=== PATIENT | male | born 1970 | race African-American/Black ===

== ENCOUNTER 2022-07-08 09:33 | Inpatient (IN) | payer BC, SELFPAY ==
[2022-07-08] VITALS (26 sets, daily range): BP systolic 127–160; BP diastolic 70–98; PULSE 78–97; RESP 16–25; TEMP 36.4–36.7; O2SAT 92–100; BMI 56.9; BMI 60.1
--- NOTE | ~2022-07-08 | NM_ITS ---
EXAMINATION: NM nabila stress w perfusion DATE: 07/09/2022 12:55 INDICATION: Chest pain. TECHNIQUE: Rest images were obtained following intravenous administration of 11.5 mCi Tc99m tetrofosm in (Myoview). The patient was infused intravenously with Lexiscan (regadenoson). Then, 32.9 mCi Tc99m tetrofosmin (Myoview) was administered intravenously, and stress images were obtained. Data was noemí nstructed into short axis and horizontal and vertical long axis SPECT images. Gated SPECT images were also obtained. COMPARISON: Chest CT 07/08/2022 FINDINGS: There is a large, mild, fixed perfusion defect involving apical to basal anterior and anter olateral segments of left ventricle, consistent with infarct. No reversible component is just ischemi a. There is global hypokinesis. Left ventricular ejection fraction measures 35%. IMPRESSION: 1. Large area of mild infarct involving apical to basal anterior and anterolateral segments of left v entricle. Specificity is decreased by breast attenuation artifact. 2. Global hypokinesis with left ventricular ejection fraction measuring 35%. Reviewed, dictated and finalized at location A. IMPRESSION: 1. Large area of mild infarct involving apical to basal anterior and anterolate ral segments of left ventricle. Specificity is decreased by breast attenuation artifact. 2. Global hypokinesis with left ventricular ejection fraction measuring 35%.
--- NOTE | ~2022-07-08 | US_ITS ---
EXAMINATION: US venous doppler [facility] DATE: 07/09/2022 13:48 INDICATION: Chest pain. Elevated d-dimer. TECHNIQUE: Grayscale ultrasound images without and with compression and Doppler ultrasound images of the bilateral lower extremity veins were obtained. COMPARISON: None. FINDINGS: The visualized portions of right common femoral vein, profunda (deep) femoral vein, femoral vein, pop liteal vein, posterior tibial veins, and greater saphenous vein outflow are patent. The visualized portions of left common femoral vein, profunda femoral vein, femoral vein, popliteal v ein, posterior tibial veins and greater saphenous vein outflow are patent. IMPRESSION: 1. No deep venous thrombosis in either lower limb. Reviewed, dictated and finalized at location A.
--- NOTE | ~2022-07-08 | XR_ITS ---
EXAMINATION: XR chest 1V portable DATE: 07/08/2022 10:27 INDICATION: Left-sided chest pain TECHNIQUE: frontal view of the chest was obtained. COMPARISON: None FINDINGS: Evaluation somewhat limited by patient body habitus. Enlarged cardiac silhouette with pulmonary vascu lar congestion. Retrocardiac opacity at the left lower lung zone with obscuration left hemidiaphragm. No pneumothorax or definitive pleural effusion. Mild right superior mediastinal widening with mass e ffect upon the right side of the trachea. IMPRESSION: 1. Opacities in the left lower lung zone which could represent atelectasis or pneumonia. 2. Enlarged cardiac silhouette which could be due to cardiomegaly or pericardial effusion. 3. pulmonary vascular congestion but without ha pulmonary edema. 4. Right superior mediastinal mass exerting mass effect upon the right lateral wall of the trachea wh ich could be due to intrathoracic goiter, mediastinal lymphadenopathy or tortuous great vessels. Cont rast-enhanced chest CT could be obtained for further evaluation. Reviewed, dictated and finalized at location A. IMPRESSION: 1. Opacities in the left lower lung zone which could represent atelectasis or p neumonia. 2. Enlarged cardiac silhouette which could be due to cardiomegaly or pericardia l effusion. 3. pulmonary vascular congestion but without ha pulmonary edema. 4. Right superior mediastinal mass exerting mass effect upon the right lateral wall of the trachea which could be due to intrathoracic goiter, mediastinal lym phadenopathy or tortuous great vessels. Contrast-enhanced chest CT could be obt ained for further evaluation.
--- NOTE | ~2022-07-08 | CT_ITS ---
EXAMINATION: CTA chest PE protocol DATE: 07/08/2022 10:59 INDICATION: Substernal chest pain. TECHNIQUE: Computed tomography (CT) pulmonary angiogram of the chest was performed with 100 mL Omnipa que-350 intravenous contrast. Additional 3D reconstructions utilizing coronal maximum intensity proje ction (MIP) were performed. Automated exposure control and iterative reconstruction technique were em ployed. The dose-length product was 1172.26 mGy-cm. COMPARISON: None FINDINGS: Good contrast opacification of the pulmonary arteries. There is moderate streak artifact from dense c ontrast in the superior vena cava and right atrium. Moderate respiratory motion at the lung bases. To gether this decreases sensitivity in the subsegmental basilar pulmonary arteries. No pulmonary emboli sm identified. Mild linear discoid atelectasis in the left lower lobe. No pneumonia, pulmonary edema or other pulmonary infiltrates. No pleural effusion or pneumothorax. Cardiomegaly with left ventricul ar hypertrophy. Small amount of atherosclerotic coronary artery calcification at the proximal left an terior descending coronary artery. No pericardial effusion. Thoracic aorta is normal in caliber. No p athologically enlarged thoracic lymphadenopathy. Diffuse hepatic steatosis. Severe degenerative disc disease at C6-C7. Mild thoracic spondylosis. Chronic appearing anterior wedging at T11 with 20% anter ior vertebral body height loss. IMPRESSION: 1. No pulmonary embolism or other acute cardiopulmonary disease. Evaluation limited in the subsegment al pulmonary arteries at the bilateral lung bases due primarily to respiratory motion. 2. Cardiomegaly with left ventricular hypertrophy. 3. Diffuse hepatic steatosis. Reviewed, dictated and finalized at location A. IMPRESSION: 1. No pulmonary embolism or other acute cardiopulmonary disease. Evaluation shipley ited in the subsegmental pulmonary arteries at the bilateral lung bases due aiyana moisés to respiratory motion. 2. Cardiomegaly with left ventricular hypertrophy. 3. Diffuse hepatic steatosis.
--- NOTE | 2022-07-08 09:41 | ECG_ITS ---
Measurements Intervals [place] Rate: 96 P: [place]: 0 QRS: 6 QRSD: 111 T: 7 QT: 389 QTc: 493 Interpretive Statements SINUS RHYTHM INTRAVENTRICULAR CONDUCTION DELAY BORDERLINE R WAVE PROGRESSION, ANTERIOR LEADS BORDERLINE ST-T WAVE ABNORMALITY- INF/LAT LEADS BASELINE ARTIFACT- II, III, AVF BORDERLINE ECG NO PREVIOUS ECG AVAILABLE FOR COMPARISON Electronically Signed On 07-08-2022 9:43:35 CDT by Julian Tejada D.O.
--- NOTE | 2022-07-08 09:54 | ED.GENADULT ---
HPI - General Adult General Chief complaint: Chest Pain Stated complaint: chest pain Time Seen by Provider: 07/08/22 09:37 History of Present Illness HPI narrative: 52-year-old male with prior history of heart disease cardiomegaly and hypertension presented emerged department for evaluation of cute onset of left-sided chest pain. Patient states he was getting ready for his physical therapy when he had an intense pain in his left chest wall. Patient states that he did have some worsening shortness of breath and did have some left arm pain. Patient states he felt that he had weakness in the left arm secondary to the pain. Patient states he had no affected numbness states that as the pain improves he feels the weakness is improving. Patient has no prior history of cardiac stents. Patient does have history of cardiomegaly. Related Data Allergies Allergy/AdvReac Type Severity Reaction Status Date / Time No Known Allergies Allergy Verified 07/08/22 10:03 Review of Systems Review of Systems: CONSTITUTIONAL: Denies fever, chills, or sweats. EYES: Denies visual changes, redness, or discharge. ENT: Denies rhinorrhea, congestion, sore throat, or otalgia. CARDIOVASCULAR: See HPI RESPIRATORY: Denies cough or dyspnea. GASTROINTESTINAL: Denies abdominal pain, nausea, vomiting, or diarrhea. GENITOURINARY: Denies dysuria or hematuria. SKIN: Denies rash or itching. MUSCULOSKELETAL: Denies back pain, joint pain, or myalgia. NEUROLOGIC: Denies headache, numbness, or weakness. [facility] Past Medical History Medical History (Updated 07/08/22 @ 18:27 by Param Wood MD) History of myocardial infarction HTN (hypertension), malignant Obesity TIA (transient ischemic attack) Surgical History Surgical History (Updated 07/08/22 @ 15:43 by Alisha Odell NP) H/O eye surgery Family History Family History Unknown Family history unknown Social History Social History (Updated 07/08/22 @ 16:41 by Alisha Odell NP) Social History: [facility]. He is Single and has no children. He is a former smoker. 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 The patient denies any alcohol marijuana or illicit drugs. Code status full code Smoking status: Former smoker Exam Narrative: APPEARANCE: Well appearing, no pain, no distress, well-nourished. HEAD: normocephalic, atraumatic. EYES: PERRLA/EOMI, conjunctivae clear. NOSE: Normal no drainage NECK: Supple. No adenopathy, no masses. RESPIRATORY: Airway patent, respirations nonlabored. Clear to auscultation bilaterally, no rales, rhonchi, wheezing. CARDIOVASCULAR: Regular rate and rhythm without murmurs rubs or gallops. ABDOMINAL: Soft, nontender, nondistended, normal bowel sounds MUSCULOSKELETAL: Moves all extremities. Strength/ROM intact, No edema, No calf tenderness. NEURO: Alert. Cranial nerves II through XII intact. Grossly intact SKIN: Warm, dry. Normal Color Course Course Emergency Course: EKG showed no evidence of acute STEMI. Patient's troponins were elevated but plateaued. Patient's D-dimer was elevated so a CTA PE study was ordered. Patient was agreeable for admission for further cardiac rule out. All questions concerns were addressed. Case was discussed with hospitalist and patient was admitted to the IMU. Patient was stable at time of admission. Patient denied any complaints and felt back to his baseline at time of admission. Vital Signs Vital signs: Vital Signs Pulse Rate 97 07/08/22 09:33 Respiratory Rate 22 H 07/08/22 09:33 Blood Pressure 127/78 07/08/22 09:33 Pulse Oximetry 97 07/08/22 09:33 Oxygen Delivery Room Air 07/08/22 09:33 Temperature 97.6 F 07/08/22 16:37 Pulse Rate 79 07/08/22 18:00 Respiratory Rate 24 H 07/08/22 16:37 Blood Pressure 150/98 H 07/08/22 16:37 Pulse Oximetry 98 07/08/22 16:3
[2022-07-08] MEDS: Please add drug allergy info to patient profile. 1 EACH XX (10:02)
[2022-07-08 10:23] LABS: Basophils Percent Auto 0.5 % (0.2-1.2); Eosinophils Absolute Auto 0.4 K/mm3 (0-0.3); Eosinophils Percent Auto 5.4 % (0-4.4); Hematocrit 40.1 % (42.0-52.0); Hemoglobin 11.9 g/dL (14.0-18.0); Immature Granulocyte Absolute 0.02 K/mm3 (0.00-0.031); Immature Granulocyte Percent A 0.3 % (0-0.5); Lymphocytes Absolute Auto 1.47 K/mm3 (0.9-3.2); Lymphocytes Percent Auto 18.4 % (18.3-44.2); Mean Corpuscular HGB Conc 29.7 g/dl (32-36); Mean Corpuscular Hemoglobin 24.2 pg (26-34); Mean Corpuscular Volume 81.7 fl (80-100); Mean Platelet Volume 10.5 fl (7.4-10.4); Monocytes Absolute Auto 0.4 K/mm3 (0.1-0.6); Monocytes Percent Auto 5.5 % (2.6-8.5); Neutrophils Absolute Auto 5.6 K/mm3 (1.3-6.7); Neutrophils Percent Auto 69.9 % (45.5-73.1); Platelet Count Result 298 k/mm3 (150-375); Red Blood Count 4.91 M/mm3 (4.6-6.20); Red Cell Distribution Width 18.2 % (11.5-14.5)
[2022-07-08 10:32] LABS: Alanine Aminotransferase 18 U/L (6-50); Albumin Level 4.1 g/dL (3.5-5.1); Alkaline Phosphatase 70 U/L (38-126); Anion Gap 10 mmol/L (8-16); Aspartate Amino Transferase 22 U/L (17-59); Bilirubin,Total 0.3 mg/dL (0.2-1.3); Blood Urea Nitrogen 19 mg/dL (9-20); Calcium 8.5 mg/dL (8.4-10.2); Carbon Dioxide 28 mmol/L (22-30); Chloride 100 mmol/L (98-107); Estimated CRCL calculation 142 ml/min; Estimated Glomerular Filt Rate > 60; Glucose 172 mg/dL (65-110); Lipase 60 U/L (23-300); Partial Thromboplastin Time 32.2 SECONDS (22.3-36.8); Potassium 4.1 mmol/L (3.4-5.0); Prothrombin Time 12.3 Seconds (11.1-14.7); Sodium 138 mmol/L (137-145)
[2022-07-08 10:38] LABS: Anisocytosis 1+ (NORMAL); Hypochromasia 1+ (NORMAL); Ovalocytes 1+ (NORMAL); Platelet Estimate Adequate (Adequate)
[2022-07-08 10:39] LABS: D Dimer 0.54 ug/mL (<0.48)
[2022-07-08 10:46] LABS: Troponin I 0.055 ng/mL (0.000-0.034)
[2022-07-08 14:10] LABS: Troponin I 0.047 ng/mL (0.000-0.034)
--- NOTE | 2022-07-08 15:40 | PM.IMHP ---
H&P: HPI History of Present Illness Date/Time: 07/08/22 15:40 Chief Complaint: Chest pain Narrative: This is a 52-year-old male patient who stated he had a previous OK came in today with complaints of left-sided chest pain. The patient stated that he lives at [facility]. The patient developed some left-sided chest pain when he was getting ready for physical therapy and he had an intense pain to his left chest. He also had worsening shortness of breath and some left arm pain. The patient felt that he had weakness in his left arm secondary to the pain. The patient tells me that he has had a previous TIA. The patient was not very forthcoming with his medications and past medical history. His H&H is 11.9 and 40.1. The patient is chronically on oxygen at 2 L per nasal cannula. D-dimers noted to be is 0.54. Troponin 0.055 and 0.057. His pain is now resolved. Chest CTA was read as the following. 1. No pulmonary embolism or other acute cardiopulmonary disease. Evaluation limited in the subsegmental pulmonary arteries at the bilateral lung bases due primarily to respiratory motion. 2. Cardiomegaly with left ventricular hypertrophy. 3. Diffuse hepatic steatosis. Chest x-ray was read as the following 1. Opacities in the left lower lung zone which could represent atelectasis or pneumonia. 2. Enlarged cardiac silhouette which could be due to cardiomegaly or pericardial effusion. 3. pulmonary vascular congestion but without ha pulmonary edema. 4. Right superior mediastinal mass exerting mass effect upon the right lateral wall of the trachea which could be due to intrathoracic goiter, mediastinal lymphadenopathy or tortuous great vessels. Contrast-enhanced chest CT could be obtained for further evaluation. The patient tells me that he takes a daily aspirin. The patient was given aspirin, Dilaudid, and morphine in the emergency room. The patient is being admitted to observation status on the date of service of 07/08/2022 Review of Systems Review of Systems: See HPI All systems reviewed & are unremarkable except as noted in HPI and below Constitutional: Constitutional: Reports as per HPI and Reports no additional constitutional complaints Eyes: Eyes: Reports as per HPI and Reports no additional eye complaints ENT: Reports system reviewed and no additional complaints, except as documented and Reports Normal hearing present Cardiovascular: Cardiovascular: Reports no additional cardiovascular complaints Respiratory: Respiratory: Reports no additional respiratory complaints and Reports no additional respiratory complaints Gastrointestinal: Gastrointestinal: Reports as per HPI and Reports no additional gastrointestinal complaints Musculoskeletal: Musculoskeletal: Reports no additional musculoskeletal complaints Integumentary/Breasts: Skin/Breast: Reports system reviewed and no additional complaints, except as docu and Reports as per HPI Neurologic: Reports system reviewed and no additional complaints, except as documented, Reports as per HPI and Reports Normal hearing present Psychiatric: Psychiatric: Reports no additional psychiatric complaints and Reports as per HPI Endocrine: Endocrine: Reports no additional endocrine complaints Hematologic/Lymphatic: Hematologic/Lymphatic: Reports no additional hematologic/lymphatic complaints Allergic/Immunologic: Allergic/Immunologic: Reports no additional allergic/immunologic complaints [facility] Past Medical History Medical History (Updated 07/08/22 @ 16:49 by Alisha Odell NP) History of myocardial infarction HTN (hypertension), malignant Obesity TIA (transient ischemic attack) Surgical History Surgical History (Updated 07/08/22 @ 15:43 by Alisha Odell NP) H/O eye surgery Family History Family History (Updated 07/08/22 @ 16:39 by Alisha Odell NP) Unknown Family history unknown Social History Social History (Updated 07/08/22 @ 16:41 by Alisha Black
[2022-07-08 16:27] LABS: Troponin I 0.057 ng/mL (0.000-0.034)
--- NOTE | 2022-07-08 16:37 | ADMGEN ---
This patient, Fernando Lambert, was admitted to IMU Room 214-01. Patient/family oriented to hospital policies and general routines including ID bracelet, bed and alarms, visiting hours, pain management, procedures, bathroom and other care routines, personal items, smoking policy, room service/diet, and visiting hours. Information on how to activate the Rapid Response Team has been discussed. Patient/Family are encouraged to report perceived risks to care and to ask questions if they do not understand what they are told or what they should do.
[2022-07-08] MEDS: hydrALAZINE HCL 20 MG/ML VIAL 10 MG IV PUSH (21:38)
[2022-07-08] MEDS: ACETAMINOPHEN 325 MG TABLET PO (23:41)
[2022-07-09] VITALS (15 sets, daily range): BP systolic 125–168; BP diastolic 78–98; PULSE 80–114; RESP 18–24; TEMP 36.2–37.1; O2SAT 94–99; BMI 60.0
--- NOTE | 2022-07-09 | EST_ITS ---
Patient Info Name: Fernando Lambert Age: 52 years : 1970 Gender: Male Ht: 72 in Wt: 445 lbs BSA: 3.32 m2 HR: 84 bpm BP: 129 / 92 mmHg Heart Rhythm: Sinus Rhythm Exam Date: 07/09/2022 11:55 AM Exam Location: [facility] Stress Patient Status: Inpatient Admit Date: 07/08/2022 Staff Ordering Physician: Alisha Odell NP Attending Provider: Joce Flores MD Exercise Technologist: Chuyita Del Castillo, CT Nurse: mahin siddiqui Exam Type: CA stress nabila w NM Study Info Indications R07.9 - Chest pain, unspecified A regadenoson stress test was performed. Summary 1. Please correlate with nuclear medicine images, reported separately. 2. No abnormal ST-T wave changes with lexiscan. Protocol: Lexiscan Stress ECG Details Stage: REST Duration (min): 0 min : 59 sec HR (bpm): 87 SBP (mmHg): 129 DBP (mmHg): 92 Stage: REST Duration (min): 4 min : 21 sec HR (bpm): 86 SBP (mmHg): 129 DBP (mmHg): 92 Stage: STAGE 1 Duration (min): 1 min : 0 sec HR (bpm): 93 SBP (mmHg): 120 DBP (mmHg): 93 Stage: RECOVERY Duration (min): 1 min : 0 sec HR (bpm): 101 SBP (mmHg): 120 DBP (mmHg): 93 Stage: RECOVERY Duration (min): 2 min : 0 sec HR (bpm): 95 SBP (mmHg): 120 DBP (mmHg): 93 Stage: RECOVERY Duration (min): 3 min : 0 sec HR (bpm): 94 SBP (mmHg): 141 DBP (mmHg): 90 Stage: RECOVERY Duration (min): 3 min : 12 sec HR (bpm): 96 SBP (mmHg): 141 DBP (mmHg): 90 Rest HR: 86 bpm Peak HR: 103 bpm Rest Sys BP: 129 mmHg Peak Sys BP: 141 mmHg Max Pred HR: 169 bpm % Max Pred HR: 61 % Target HR: 144 bpm Max RPP: 14,523 bpm*mmHg Target HR Summary: Hemodynamic response to exercise was normal BP Response: Normal blood pressure response Termination Reason: Completed protocol Cardiac Symptoms: None Total Time: 1 min : 0 sec Rest Ellis BP: 92 mmHg Peak Ellis BP: 90 mmHg Total Dose: 0.4 mg Resting ECG Normal sinus rhythm. Resting ST/T wave changes. LVH. Stress ECG No abnormal ST/T wave changes with exercise. Arrhythmias Occasional PVCs. Report Signatures
--- NOTE | 2022-07-09 | ECHO_ITS ---
Patient Info Name: Fernando Lambert Age: 52 years : 1970 Gender: Male Ht: 72 in Wt: 443 lbs BSA: 3.31 m2 HR: 88 bpm BP: 130 / 81 mmHg Heart Rhythm: Sinus Rhythm Exam Date: 07/09/2022 8:32 AM Exam Location: [facility] Pulmonary Patient Status: Outpatient Admit Date: 07/08/2022 Staff Ordering Physician: Alisha Odell NP Banquet Attendant: Yovanny Pruett, ROSALINA, RT Attending Provider: Joce Flores MD Referring Physician: Cass MOONEY; Exam Type: CA echo dop color flow w con Study Info Indications R06.02 - Shortness of breath I51.7 - Cardiomegaly Complete two-dimensional, color flow and Doppler transthoracic echocardiogram is performed with contrast to opacify the left ventricle and to improve the deliniation of the left ventricle endocardial borders. Summary 1. Left ventricular chamber dimension is severely enlarged. 2. Left ventricular systolic function is severely reduced, estimated at 20-25%. 3. There is severely increased left ventricular wall thickness. 4. The left ventricular diastolic function is grade I diastolic dysfunction. 5. Left atrial chamber dimension is mildly enlarged. 6. There is mild mitral valve regurgitation. Left Ventricle Left ventricular chamber dimension is severely enlarged. Left ventricular systolic function is severely reduced, estimated at 20-25%. There is severely increased left ventricular wall thickness. The left ventricular diastolic function is grade I diastolic dysfunction. Right Ventricle Right ventricular chamber dimension is normal. Right ventricular systolic function is normal. Left Atria Left atrial chamber dimension is mildly enlarged. Right Atria Right atrial chamber dimension is normal. Atrial Septum Intact interatrial septum visualized by color flow imaging. Aortic Valve The aortic valve is probable trileaflet. There is mild aortic valve sclerosis. There is no aortic valve stenosis. There is trace aortic valve regurgitation. Pulmonic Valve The pulmonic valve is normal. There is no pulmonic valve stenosis. There is trace pulmonic regurgitation. Mitral Valve The mitral valve has normal leaflets. There is no mitral valve stenosis. There is mild mitral valve regurgitation. Tricuspid Valve The tricuspid valve leaflets are normal. There is no significant tricuspid valve stenosis. There is trace tricuspid valve regurgitation. Pericardium/Pleural The pericardium appears normal. There is trivial pericardial effusion. Inferior Vena Cava Dilated inferior vena cava with >50% collapse upon inspiration consistent with elevated right atrial pressure, 10 mmHg. Aorta The aortic root size at the sinus of Valsalva is normal. The prox ascending aorta size is normal. Left Ventricular Outflow Tract Name Value Normal LVOT 2D LVOT Diameter 2.31 cm LVOT Doppler LVOT Peak Gradient 5 mmHg LVOT Mean Gradient 3 mmHg LVOT VTI 19.69 cm LVOT VTI/AV VTI Ratio 0.74 LVOT Stroke Volume 82.11 ml
[2022-07-09 04:52] LABS: Basophils Percent Auto 0.5 % (0.2-1.2); Eosinophils Absolute Auto 0.5 K/mm3 (0-0.3); Eosinophils Percent Auto 5.6 % (0-4.4); Hematocrit 39.5 % (42.0-52.0); Immature Granulocyte Absolute 0.02 K/mm3 (0.00-0.031); Immature Granulocyte Percent A 0.2 % (0-0.5); Lymphocytes Absolute Auto 1.68 K/mm3 (0.9-3.2); Lymphocytes Percent Auto 20.9 % (18.3-44.2); Mean Corpuscular HGB Conc 30.4 g/dl (32-36); Mean Corpuscular Hemoglobin 24.8 pg (26-34); Mean Corpuscular Volume 81.8 fl (80-100); Mean Platelet Volume 10.5 fl (7.4-10.4); Monocytes Absolute Auto 0.6 K/mm3 (0.1-0.6); Monocytes Percent Auto 7.8 % (2.6-8.5); Neutrophils Absolute Auto 5.2 K/mm3 (1.3-6.7); Platelet Count Result 266 k/mm3 (150-375); Red Blood Count 4.83 M/mm3 (4.6-6.20); Red Cell Distribution Width 17.8 % (11.5-14.5)
[2022-07-09 05:01] LABS: Cholesterol 142 mg/dL (0-200); HDL Direct 23 mg/dL; Lactate Dehydrogenase 183 U/L (120-246); Magnesium 2.2 mg/dL (1.6-2.3); Phosphorus 3.5 mg/dL (2.5-4.5); Triglycerides 185 mg/dL (<150)
[2022-07-09 05:12] LABS: LDL Cholesterol Direct 45 mg/dL
[2022-07-09] MEDS: PERFLUTREN LIPID MICROSPHERES 1.5 ML VIAL DILUTED TO 10 ML TOTAL VOLUME IV PUSH (08:38)
--- NOTE | 2022-07-09 08:39 | IVDEFINITY ---
Prior to administration of IV Definity the patient was educated on the risks and benefits of the imaging enhancing agent including potential adverse side effects. The patient verbalized understanding. Allergies were verified. No exclusion criteria were identified and at least one of the following inclusion criteria were met: 1) physician request, 2) patient technically difficult to image (per the [place] [employer] guidelines of two or more segments not discernable within the apical view), or 3) questionable left ventricular function. ?
[2022-07-09] MEDS: ENOXAPARIN 40 MG/0.4 ML SYRINGE SUB-Q (10:19)
[2022-07-09] MEDS: METOPROLOL SUCCINATE EXT REL 100 MG TABCR PO (10:20)
[2022-07-09] MEDS: FERROUS SULFATE 324 MG TABLET PO ×2 (10:20→16:29)
[2022-07-09] MEDS: hydrALAZINE HCL 50 MG TABLET 100 MG PO ×2 (10:20→16:29)
[2022-07-09] MEDS: MAGNESIUM OXIDE 400 MG TABLET PO ×2 (10:20→16:30)
[2022-07-09] MEDS: FLUTICASONE PROPIONATE 0.05% NA SPR 16 GM BTL (*BKC) 1 SPRAY NASAL ×2 (10:21→16:29)
[2022-07-09] MEDS: FAMOTIDINE 20 MG TABLET 40 MG PO ×2 (10:21→16:28)
[2022-07-09] MEDS: amLODIPine BESYLATE 5 MG TABLET 10 MG PO (10:21)
[2022-07-09] MEDS: ASPIRIN 81 MG CHEWABLE TABLET PO (10:21)
[2022-07-09] MEDS: FOLIC ACID 1 MG TABLET PO (10:21)
--- NOTE | 2022-07-09 11:21 | PM.CNCAR ---
Assessment and Plan Assessment and plan (1) Chest pain: Code(s): R07.9 - Chest pain, unspecified Status: Acute Assessment and Plan: Very atypical. Stress test was already ordered and will await results. Chest pain is pleuritic and likely noncardiac. 2D echocardiogram Doppler also be ordered and reviewed (2) Elevated troponin: Code(s): R77.8 - Other specified abnormalities of plasma proteins Status: Acute Assessment and Plan: Nonspecific troponin elevation of uncertain etiology. Possibly related to elevated blood pressure. Unlikely related to ACS (3) Obesity: Code(s): E66.9 - Obesity, unspecified Status: Acute (4) HTN (hypertension), malignant: Code(s): I10 - Essential (primary) hypertension Status: Acute Assessment and Plan: Continue current meds including amlodipine, aspirin, furosemide, metoprolol, hydralazine. History of Present Illness History of Present Illness Consult date/time: 07/09/22 11:21 Requesting physician: Alisha Odell CH[facility]CKER Consult reason: chest pain Reason For Visit: left sided chest pain,elevated trop Narrative: Date of service 07/09/2022 Reason consultation: Chest pain, elevated troponins Requesting provider: Alisha Odell History: Patient is a 52-year-old male who is currently at [facility] who came into the hospital because of pleuritic chest pain. He started developing chest pain yesterday morning that was worsened by deep breathing. It lasted a couple hours. He was given morphine aspirin and nitroglycerin with improvement of his symptoms. Symptoms lasted for approximately 2 hours. Came to the hospital and had minimal troponin elevation without any significant rise or fall. No pulmonary embolism was noted on CTA. He is currently pain-free. He denies any recent exertional chest pain, unusual shortness of breath, paroxysmal nocturnal dyspnea, orthopnea, edema, palpitations, syncope or presyncope. Review of Systems Review of Systems: All systems reviewed & are unremarkable except as noted in HPI and below Constitutional: Constitutional: Denies body ache(s) Eyes: Eyes: Denies blurry vision ENT: Reports Normal hearing present Cardiovascular: Cardiovascular: Denies diaphoresis Respiratory: Respiratory: Denies chest congestion, Denies cough and Reports dyspnea Gastrointestinal: Gastrointestinal: Denies abdominal pain Genitourinary: Genitourinary: Denies urinary urgency Musculoskeletal: Musculoskeletal: Denies back pain Integumentary/Breasts: Skin/Breast: Denies pruritus and Denies erythema Neurologic: Denies headache(s) Psychiatric: Psychiatric: Denies confusion Endocrine: Endocrine: Denies fatigue Hematologic/Lymphatic: Hematologic/Lymphatic: Denies easy bleeding Allergic/Immunologic: Allergic/Immunologic: Denies GI upset with certain foods and Denies lip swelling PMFSH Past Medical History Medical History (Updated 07/08/22 @ 18:27 by Param Wood MD) History of myocardial infarction HTN (hypertension), malignant Obesity TIA (transient ischemic attack) Surgical History Surgical History (Updated 07/08/22 @ 15:43 by Alisha Odell NP) H/O eye surgery Family History Family History Unknown Family history unknown Social History Social History (Updated 07/08/22 @ 16:41 by Alisha Odell NP) Social History: [facility] He is Single and has no children. He is a former smoker. 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 The patient denies any alcohol marijuana or illicit drugs. Code status full code Smoking status: Former smoker Comments Family medical history: No documented premature coronary disease history in the family Meds Home Medications and Allergies Home Medications Medication Instructions Recorded
--- NOTE | 2022-07-09 15:16 | PM.IMPN ---
Progress Note: A&P Assessment and Plan (1) Elevated troponin: Code(s): R77.8 - Other specified abnormalities of plasma proteins Status: Acute Assessment and Plan: - no prior history of ischemic heart disease. He had seen consumer electronics merchandiser while he gets admitted but fails to follow-up with them as an outpatient basis. I have taken care of him in the past at a different facility and Am unsure if he had a cardiac catheterization done but has had stress test done as far as a remember. -cardiology has been consulted. -echo pending -Lexiscan with large area mild infarct involving apical to basal anterior and anterolateral segment of left ventricle. Specificities decreased by breast attenuation artifact. Global hypokinesis with left ventricular ejection fraction measuring 35% -continue with daily aspirin. - lipid panel on (2) Chest pain: Code(s): R07.9 - Chest pain, unspecified Status: Acute Assessment and Plan: -patient is currently free from chest pain. -he had mildly elevated troponins which all have been level. -cardiology has been consulted. -although his D-dimer was elevated his CTA was negative. - positive D-dimer but venous duplex negative for DVT (3) Obesity: Code(s): E66.9 - Obesity, unspecified Status: Acute Assessment and Plan: -we discussed heart healthy diet. -dietitian has been consulted. -due to excessive calorie intake -discussed low-fat low-salt diet. Avoid fatty fried foods. Eat at least 2 servings of fruits and vegetables daily. Drink plenty water (4) HTN (hypertension), malignant: Code(s): I10 - Essential (primary) hypertension Status: Acute Assessment and Plan: resume home medication (5) TIA (transient ischemic attack): Code(s): G45.9 - Transient cerebral ischemic attack, unspecified Status: Acute Assessment and Plan: -continue with daily aspirin. No residual Subjective Date/time seen: 07/09/22 15:16 Interval history: HPI:This is a 52-year-old male patient who stated he had a previous MO came in today with complaints of left-sided chest pain.? The patient stated that he lives at [facility].? The patient developed some left-sided chest pain when he was getting ready for physical therapy and he had an intense pain to his left chest.? He also had worsening shortness of breath and some left arm pain.? The patient felt that he had weakness in his left arm secondary to the pain.? The patient tells me that he has had a previous TIA.? The patient was not very forthcoming with his medications and past medical history.? His H&H is 11.9 and 40.1.? The patient is chronically on oxygen at 2 L per nasal cannula.? D-dimers noted to be is 0.54.? Troponin 0.055 and 0.057.? His pain is now resolved.? Chest CTA was read as the following. 1. No pulmonary embolism or other acute cardiopulmonary disease. Evaluation limited in the subsegmental pulmonary arteries at the bilateral lung bases due primarily to respiratory motion. 2. Cardiomegaly with left ventricular hypertrophy. 3. Diffuse hepatic steatosis. Chest x-ray was read as the following 1. Opacities in the left lower lung zone which could represent atelectasis or pneumonia. 2. Enlarged cardiac silhouette which could be due to cardiomegaly or pericardial effusion. 3. pulmonary vascular congestion but without ha pulmonary edema. 4. Right superior mediastinal mass exerting mass effect upon the right lateral wall of the trachea which could be due to intrathoracic goiter, mediastinal lymphadenopathy or tortuous great vessels. Contrast-enhanced chest CT could be obtained for further evaluation. The patient tells me that he takes a daily aspirin.? The patient was given aspirin, Dilaudid, and morphine in the emergency room.? The patient is being admitted to observation status on the date of service of 07/08/2022 07/09/2022 no new complaints feels well. precordi
[2022-07-09] MEDS: FUROSEMIDE 40 MG TABLET PO (16:29)
--- NOTE | 2022-07-09 17:24 | PC.NURSE ---
This patient, Fernando Lambert, was transferred to [facility] on 07/09/22 at 1715. Personal belongings sent with patient. Report given to Juliet ODONNELL. Appropriate documentation sent with patient.
[2022-07-10] VITALS (7 sets, daily range): BP systolic 146–150; BP diastolic 78–88; PULSE 75–94; RESP 18–22; TEMP 36.2–36.6; O2SAT 92–98
[2022-07-10] MEDS: hydrALAZINE HCL 50 MG TABLET 100 MG PO ×3 (08:45→18:38)
[2022-07-10] MEDS: MAGNESIUM OXIDE 400 MG TABLET PO (08:45)
[2022-07-10] MEDS: FUROSEMIDE 40 MG TABLET PO ×2 (08:45→18:37)
[2022-07-10] MEDS: METOPROLOL SUCCINATE EXT REL 100 MG TABCR PO (08:45)
[2022-07-10] MEDS: ASPIRIN 81 MG CHEWABLE TABLET PO (08:45)
[2022-07-10] MEDS: FOLIC ACID 1 MG TABLET PO (08:45)
[2022-07-10] MEDS: FAMOTIDINE 20 MG TABLET 40 MG PO ×2 (08:46→18:37)
[2022-07-10] MEDS: FERROUS SULFATE 324 MG TABLET PO ×2 (08:46→18:37)
[2022-07-10] MEDS: amLODIPine BESYLATE 5 MG TABLET 10 MG PO (08:46)
[2022-07-10] MEDS: ENOXAPARIN 40 MG/0.4 ML SYRINGE SUB-Q (08:46)
[2022-07-10] MEDS: FLUTICASONE PROPIONATE 0.05% NA SPR 16 GM BTL (*BKC) 1 SPRAY NASAL ×2 (08:46→18:37)
--- NOTE | 2022-07-10 08:51 | PM.PNCARD ---
Progress Note: A&P Assessment and Plan (1) Cardiomyopathy: Code(s): I42.9 - Cardiomyopathy, unspecified Status: Acute Assessment and Plan: NICM probably secondary to longstanding HTN. EF 35%. Optimize medical therapy with addition of Entresto, spironolactone Continue p.o. furosemide 40mg b.i.d. CHF counseling OK for discharge today from a cardiac standpoint. Outpatient f/u in our office. (2) Chest pain: Code(s): R07.9 - Chest pain, unspecified Status: Acute Assessment and Plan: Atypical chest pain. Stress test yesterday revealed large area of mild infarct, no reversible component to suggest ischemia. Records from outside hospital indicate he had a cath (2019?) that showed mild disease of the RCA (40% mid RCA lesion) that was treated medically. Continue ASA. Will start statin. (3) Elevated troponin: Code(s): R77.8 - Other specified abnormalities of plasma proteins Status: Acute Assessment and Plan: Nonspecific troponin elevation of uncertain etiology. Possibly related to elevated blood pressure. (4) Obesity: Code(s): E66.9 - Obesity, unspecified Status: Acute Assessment and Plan: Weight loss encouraged (5) HTN (hypertension), malignant: Code(s): I10 - Essential (primary) hypertension Status: Acute Assessment and Plan: Continue current meds including amlodipine, aspirin, furosemide, metoprolol, hydralazine. Hopefully will achieve better BP control with addition of HF meds. Subjective Date/time seen: 07/10/22 08:51 Cardiology follow up for cardiomyopathy, CHF Feeling well this morning. No shortness of breath or swelling. Review of Systems Review of Systems: All systems reviewed & are unremarkable except as noted in HPI and below Constitutional: Constitutional: Denies body ache(s), Denies fatigue and Denies headache(s) Eyes: Eyes: Denies blurry vision ENT: Reports Normal hearing present, Denies headache(s) and Denies lip swelling Cardiovascular: Cardiovascular: Denies diaphoresis and Reports dyspnea Respiratory: Respiratory: Denies chest congestion, Denies cough and Reports dyspnea Gastrointestinal: Gastrointestinal: Denies abdominal pain Genitourinary: Genitourinary: Denies urinary urgency Musculoskeletal: Musculoskeletal: Denies back pain Integumentary/Breasts: Skin/Breast: Denies pruritus and Denies erythema Neurologic: Reports Normal hearing present, Denies confusion and Denies headache(s) Psychiatric: Psychiatric: Denies confusion Endocrine: Endocrine: Denies fatigue Hematologic/Lymphatic: Hematologic/Lymphatic: Denies easy bleeding Allergic/Immunologic: Allergic/Immunologic: Denies GI upset with certain foods and Denies lip swelling Exam Narrative: Awake alert oriented appears to be stated age Const: General: comfortable; No in distress or confusion Orientation/consciousness: No confusion HENMT: General nose exam: Normal nares present Mouth: Yes moist mucous membranes Eyes: Sclera: sclerae normal Neck: Neck: supple Carotids: no bruits Chest: Other: No reproducible chest wall pain to palpation Resp: Effort & Inspection: normal respiratory effort Auscultation: clear to auscultation bilaterally Cardio: Rate: regular rate Rhythm: regular rhythm Heart sounds: no murmurs GI: Inspection: non-distended Auscultation: normal bowel sounds Skin: General skin exam: normal color Neuro: General: No confusion Cranial nerves: Yes Normal hearing present Speech: normal speech Sensory Exam: normal sensation Extrem: General: normal to inspection Psych: Mental Status: mental status grossly normal Objective Data Vital Signs Vital Signs: Vital Signs - 24 hr 07/09/22 10:20 07/09/22 10:00 07/09/22 12:00 Temperature Pulse Rate 84 82 93 Respiratory Rate Blood Pressure Pulse Oximetry Oxygen Delivery Oxygen Flow Rate 07/09/22 13:58 07/09/22 1
[2022-07-10 09:07] LABS: Basophils Absolute Auto 0.1 K/mm3 (0.0-0.1); Basophils Percent Auto 0.6 % (0.2-1.2); Eosinophils Absolute Auto 0.4 K/mm3 (0-0.3); Eosinophils Percent Auto 5.1 % (0-4.4); Hemoglobin 11.8 g/dL (14.0-18.0); Immature Granulocyte Absolute 0.02 K/mm3 (0.00-0.031); Immature Granulocyte Percent A 0.2 % (0-0.5); Immature Platelet Fraction Pct 4.6 % (0.9-11.2); Lymphocytes Absolute Auto 1.51 K/mm3 (0.9-3.2); Lymphocytes Percent Auto 18.8 % (18.3-44.2); Mean Corpuscular HGB Conc 30.3 g/dl (32-36); Mean Corpuscular Hemoglobin 24.7 pg (26-34); Mean Corpuscular Volume 81.6 fl (80-100); Mean Platelet Volume 11.3 fl (7.4-10.4); Monocytes Absolute Auto 0.5 K/mm3 (0.1-0.6); Monocytes Percent Auto 5.7 % (2.6-8.5); Neutrophils Absolute Auto 5.6 K/mm3 (1.3-6.7); Neutrophils Percent Auto 69.6 % (45.5-73.1); Platelet Count Result 223 k/mm3 (150-375); Red Blood Count 4.78 M/mm3 (4.6-6.20); Red Cell Distribution Width 17.7 % (11.5-14.5); White Blood Count 8.1 K/mm3 (4.5-10.0)
[2022-07-10 09:23] LABS: Alanine Aminotransferase 20 U/L (6-50); Albumin Level 3.9 g/dL (3.5-5.1); Alkaline Phosphatase 79 U/L (38-126); Anion Gap 11 mmol/L (8-16); Aspartate Amino Transferase 22 U/L (17-59); Bilirubin,Total 0.5 mg/dL (0.2-1.3); Blood Urea Nitrogen 13 mg/dL (9-20); Calcium 8.6 mg/dL (8.4-10.2); Carbon Dioxide 24 mmol/L (22-30); Chloride 101 mmol/L (98-107); Estimated CRCL calculation 137 ml/min; Estimated Glomerular Filt Rate > 60; Glucose 162 mg/dL (65-110); Magnesium 2.3 mg/dL (1.6-2.3); Potassium 3.9 mmol/L (3.4-5.0); Sodium 136 mmol/L (137-145)
[2022-07-10] MEDS: SACUBITRIL/VALSARTAN 24-26 MG TABLET 1 TAB PO (10:23)
--- NOTE | 2022-07-10 11:19 | PM.DS ---
DS: Admitting Diagnosis Discharge Date 07/10/2022 Admitting Diagnosis chest pain DS: Discharge Diagnosis Discharge Diagnosis (1) Elevated troponin: Code(s): R77.8 - Other specified abnormalities of plasma proteins Status: Acute (2) Chest pain: Code(s): R07.9 - Chest pain, unspecified Status: Acute (3) Obesity: Code(s): E66.9 - Obesity, unspecified Status: Acute (4) HTN (hypertension), malignant: Code(s): I10 - Essential (primary) hypertension Status: Acute (5) TIA (transient ischemic attack): Code(s): G45.9 - Transient cerebral ischemic attack, unspecified Status: Acute DS: Summary Hospital Course Reason for hospitalization: This is a 52-year-old male patient who stated he had a previous CT came in today with complaints of left-sided chest pain.? The patient stated that he lives at [facility].? The patient developed some left-sided chest pain when he was getting ready for physical therapy and he had an intense pain to his left chest.? He also had worsening shortness of breath and some left arm pain.? The patient felt that he had weakness in his left arm secondary to the pain.? The patient tells me that he has had a previous TIA.? The patient was not very forthcoming with his medications and past medical history.? His H&H is 11.9 and 40.1.? The patient is chronically on oxygen at 2 L per nasal cannula.? D-dimers noted to be is 0.54.? Troponin 0.055 and 0.057.? His pain is now resolved.? Chest CTA was read as the following. 1. No pulmonary embolism or other acute cardiopulmonary disease. Evaluation limited in the subsegmental pulmonary arteries at the bilateral lung bases due primarily to respiratory motion. 2. Cardiomegaly with left ventricular hypertrophy. 3. Diffuse hepatic steatosis. Chest x-ray was read as the following 1. Opacities in the left lower lung zone which could represent atelectasis or pneumonia. 2. Enlarged cardiac silhouette which could be due to cardiomegaly or pericardial effusion. 3. pulmonary vascular congestion but without ha pulmonary edema. 4. Right superior mediastinal mass exerting mass effect upon the right lateral wall of the trachea which could be due to intrathoracic goiter, mediastinal lymphadenopathy or tortuous great vessels. Contrast-enhanced chest CT could be obtained for further evaluation. The patient tells me that he takes a daily aspirin.? The patient was given aspirin, Dilaudid, and morphine in the emergency room.? The patient is being admitted to observation status on the date of service of 07/08/2022 Hospital Course: # chest pain: -patient is currently free from chest pain. -he had mildly elevated troponins which all have been level. -cardiology has been consulted. -although his D-dimer was elevated his CTA was negative. - positive D-dimer but venous duplex negative for DVT # elevated troponin: - no prior history of ischemic heart disease.? He had seen clinical appeals reviewer while he gets admitted but fails to follow-up with them as an outpatient basis.? Cardiology consulted Stress test done 07/09/2022:-Lexiscan? with large area mild infarct involving apical to basal anterior and anterolateral segment of left ventricle.? Specificities decreased by breast attenuation artifact.? Global hypokinesis with left ventricular ejection fraction measuring 35% -continue with daily aspirin. - lipid panel? on Continue on aspirin added on statin. # cardiomyopathy ejection fraction a 35% this is chronic and nonischemic. Previous ejection fraction between 25-30% Started on Entresto continued metoprolol Continue diuresis with furosemide and added on spironolactone Follow-up with Cardiology on outpatient basis # longstanding hypertension: Likely reason for his cardiomyopathy He has been noncompliant with his low-salt diet. Also does not follow-up with clinical appeals reviewer regularly. Will check CMP with multiple medication
[2022-07-10 14:23] LABS: EDCOVIDSCREEN Negative (Negative)
== END 2022-07-10 18:40 | DRG 198 ==
LOC: ANHED 09:47 → ANHIMU 15:46 → ANH3MEDSUR 07-09 16:39
PROVIDERS: Nurse Practitioner; Admitting Provider Chiropractor; Emergency Provider Emergency Medicine; PCP Internal Medicine; Visit Provider Internal Medicine
DX: R07.89 Other chest pain (principal); I25.2 Old myocardial infarction; I43 Cardiomyopathy in diseases classified elsewhere; Z99.81 Dependence on supplemental oxygen; Z68.44 Body mass index [BMI] 60.0-69.9, adult; R77.8 Other specified abnormalities of plasma proteins; I11.9 Hypertensive heart disease without heart failure; E66.9 Obesity, unspecified; R79.1 Abnormal coagulation profile; Z20.822 Contact with and (suspected) exposure to COVID-19; Z86.73 Personal history of transient ischemic attack (TIA), and cerebral infarction without residual deficits; Z79.82 Long term (current) use of aspirin; Z91.19 Patient's noncompliance with other medical treatment and regimen; Z87.891 Personal history of nicotine dependence
CPT/HCPCS: 36415; 71045; 71275; 78452; 80053; 80061; 83036; 83615; 83690; 83735; 84100; 84443; 84484; 85025; 85055; 85380; 85610; 85730; 87426; 93005; 93017; 93970; 96374; 96375; 99285; A9270; A9502; C8929; C9803; G0378; G0379; J0360; J1650; J2270; J2785; Q9957; Q9967

== ENCOUNTER 2023-07-22 08:53 | Inpatient (IN) | payer BC, SELFPAY ==
[2023-07-22] VITALS (29 sets, daily range): BP systolic 64–151; BP diastolic 31–98; PULSE 67–105; RESP 15–22; TEMP 36.4–36.9; O2SAT 93–100; BMI 56.2
--- NOTE | ~2023-07-22 | CT_ITS ---
EXAMINATION: CT thoracic lumbar wo con DATE: 07/25/2023 08:22 INDICATION: Mass on back left of spine and lower thorax TECHNIQUE: Computed tomography (CT) of the thoracic and lumbar spine was performed without intravenou s contrast. The dose-length product was 2321.12 mGy-cm. Automated exposure control and iterative noemí nstruction technique were employed. COMPARISON: None FINDINGS: There is induration of the left lower back superficial fat at approximately the T11-L3 leve ls.. No discrete walled off fluid collection to suggest abscess. There is lower cervical spondylosis at C6-7. Mild wedge deformities of T10-T12 which appear chronic. There is moderate disc narrowing and endplate degenerative change at L5-S1 with bilateral neural foraminal narrowing at this level. There is mild multilevel facet hypertrophy at L2-3 through L5-S1. There is mild dextroscoliosis. Mild symm etric degenerative changes of the sacroiliac joints. There is atherosclerosis of the aorta without ev idence for aneurysm. Visualized lung parenchyma is unremarkable. IMPRESSION: 1. Soft tissue induration left lower back involving the fat at approximately the T11-L3 levels. Consi derations include posttraumatic hematoma and infection. Correlate clinically. No discrete abscess eunice ntified. 2: Moderate lumbar spondylosis. Reviewed, dictated and finalized at location A. IMPRESSION: 1. Soft tissue induration left lower back involving the fat at approximately th e T11-L3 levels. Considerations include posttraumatic hematoma and infection. C orrelate clinically. No discrete abscess identified. 2: Moderate lumbar spondylosis.
--- NOTE | ~2023-07-22 | XR_ITS ---
EXAMINATION: XR chest 2V DATE: 07/22/2023 12:33 INDICATION: Congestive heart failure with chest pain and shortness of breath TECHNIQUE: frontal and lateral views of the chest were obtained. COMPARISON: Chest CT dated 07/08/2022 FINDINGS: The lungs are clear with no focal airspace opacities, pulmonary edema, pleural effusion or pneumothor ax. Cardiomegaly. Visualized bones and soft tissues are unremarkable. IMPRESSION: 1. Cardiomegaly. No other acute cardiopulmonary disease. Reviewed, dictated and finalized at location A.
--- NOTE | ~2023-07-22 | CT_ITS ---
EXAMINATION: CT brain wo con INDICATION: Altered mental status COMPARISON: None TECHNIQUE: Standard unenhanced head CT. The dose-length product (DLP) was 681.00 mGy-cm. The mA was a djusted according to patient size. Iterative reconstruction technique was employed. FINDINGS: No intracranial hemorrhage, acute infarction, or abnormal mass lesion. The ventricles are n ormal. No abnormal mass effect or midline shift. The coelho-white matter differentiation is normal. The basal cisterns are patent. Changes in the globes are likely from ocular lens surgery. The paranasal sinuses, mastoids and calvarium are normal. IMPRESSION: 1. No acute intracranial abnormality. Reviewed, dictated and finalized at location L.
[2023-07-22 09:09] LABS: Glucose Point of Care > 500 mg/dl (65-105)
--- NOTE | 2023-07-22 09:10 | ECG_ITS ---
Measurements Intervals [place] Rate: 73 P: 69 [place]: 175 QRS: 35 QRSD: 137 T: 41 QT: 421 QTc: 466 Interpretive Statements SINUS RHYTHM INTRAVENTRICULAR CONDUCTION DELAY POOR R WAVE PROGRESSION, ANTERIOR LEADS BORDERLINE T WAVE ABNORMALITY- INFERIOR LEADS BASELINE WANDER- III, AVL, AVF ABNORMAL ECG COMPARED TO ECG 07/08/2022 09:38:23 NO SIGNIFICANT CHANGES Electronically Signed On 07-22-2023 10:36:57 CDT by Julian Tejada D.O.
--- NOTE | 2023-07-22 09:10 | ED.RECABL ---
HPI - Recheck/Abnormal Lab/Rx General Chief Complaint: Recheck/Abnormal Lab/Rx <Constance Nesbitt PA-C - Last Filed: 07/22/23 19:17> Stated Complaint: high bg <Constance Nesbitt PA-C - Last Filed: 07/22/23 19:17> Time Seen by Provider: 07/22/23 08:58 <Constance Nesbitt PA-C - Last Filed: 07/22/23 19:17> Source: patient, EMS and old records reviewed <STEPHAN Jose Last Filed: 07/22/23 19:17> Mode of arrival: EMS <STEPHAN Jose Last Filed: 07/22/23 19:17> Limitations: clinical condition <STEPHAN Jose Last Filed: 07/22/23 19:17> History of Present Illness HPI narrative: Patient is a 53 y/o male, with PMH of CHF, who presents to the ED via EMS with report of AMS and hyperglycemia. Patient is a resident of [facility]. Per EMS report, they were called out to facility today due to patient being altered, obtunded, decreased responsiveness while at breakfast this morning. Upon their arrival, patient was altered, slow to respond, but no acute focal deficits. His blood sugar was noted to be markedly elevated and was brought here for further evaluation. Patient denies history of diabetes. He does admit to feeling slightly confused this morning. He states last thing he remembers was sitting down for breakfast. He denies any other acute complaints. He does report having increased thirst and urination over the last several days with decreased appetite. Denies chest pain, abdominal pain, nausea, vomiting, dizziness, lightheadedness. <STEPHAN Jose Last Filed: 07/22/23 19:17> Related Data Home Medications: Home Medications Medication Instructions Recorded Confirmed acetaminophen 325 mg tablet 325 mg PO PRN PRN Fever Or Pain 07/08/22 07/22/23 albuterol sulfate 90 mcg/actuation 2 puff inhalation Q6H PRN 07/08/22 07/22/23 aerosol inhaler (Proventil HFA) Shortness Of Breath amlodipine 10 mg tablet 10 mg PO DAILY 07/08/22 07/22/23 aspirin 81 mg tablet,delayed 81 mg PO DAILY 07/08/22 07/22/23 release benzocaine 10 % mucosal gel 1 applic mucous membrane BID 07/08/22 07/22/23 (Anbesol (benzocaine)) eucalyptus oil-aloe 1 ea topical BID PRN Congestion 07/08/22 07/22/23 extr-lavender,young oil-petrolatum top ointment (Vicks Babyrub topical ointment) famotidine 40 mg tablet 40 mg PO BID 07/08/22 07/22/23 ferrous sulfate 325 mg (65 mg 325 mg PO BID 07/08/22 07/22/23 iron) tablet fluticasone propionate 50 1 spray intranasal BID 07/08/22 07/22/23 mcg/actuation nasal spray,suspension (Flonase Allergy Relief) folic acid 1 mg tablet 1 mg PO DAILY 07/08/22 07/22/23 furosemide 40 mg tablet 40 mg PO BID 07/08/22 07/22/23 hydralazine 100 mg tablet 100 mg PO TID 07/08/22 07/22/23 loperamide 2 mg capsule 2 mg PO USEASDIRECTD PRN Diarrhea 07/08/22 07/22/23 magnesium hydroxide 400 mg/5 mL 30 ml PO BID PRN Constipation 07/08/22 07/22/23 oral suspension (Milk of Magnesia) magnesium oxide 400 mg PO BID 07/08/22 07/22/23 metoprolol succinate 100 mg 100 mg PO DAILY 07/08/22 07/22/23 tablet,extended release 24 hr nitroglycerin 0.4 mg sublingual 0.4 mg sublingual USEASDIRECTD PRN 07/08/22 07/22/23 tablet Chest Pain <Constance Nesbitt PA-C - Last Filed: 07/22/23 19:17> Allergies/Adverse Reactions: Allergies Allergy/AdvReac Type Severity Reaction Status Date / Time No Known Allergies Allergy Verified 07/22/23 11:08 <Constance Nesbitt PA-C - Last Filed: 07/22/23 19:17> Review of Systems Review of Systems: CONSTITUTIONAL: Reports decreased intake. Denies fever, chills, or sweats. ENT: See HPI. CARDIOVASCULAR: Denies chest pain, palpitations, or edema. RESPIRATORY: Denies cough or dyspnea. GASTROINTESTINAL: Denies abdominal pain, nausea, vomiting, or diarrhea. GENITOURINARY: See HPI. MUSCULOSKELETAL: Denies back pain, joint pain, or myalgia. NEUROLOGIC: See HPI. <Constance Bowden.
[2023-07-22 09:57] LABS: Base Excess ABG 0.2 mEq/l (+/-2.0); Carboxyhemoglobin 0.9 % THb (0-2.0); Device NASAL CANNULA; Fractional Inspired Oxygen 32 %; HCO3 ABG 26.3 mEq/l (22.0-26.0); Methemoglobin ABG 0.3 %THb (0-1.5); Modified Allen's Test Pass; Oxygen Content ABG 16.8 %vol (16.0-22.0); Oxygen Saturation ABG 95.4 % (95.0-100.0); Oxyhemoglobin 94.5 % THb (90.0-100.0); PCO2 ABG 48.8 mmHg (35.0-45.0); PO2 ABG 81.1 mmHg (80.0-100.0); PO2 FiO2 Ratio Arterial Blood 2.53 %; Reduced Hemoglobin 4.3 %THb (0-5.0); Site Drawn LEFT RADIAL; Total Hemoglobin 12.6 g/dL (12.0-18.0)
[2023-07-22 09:59] LABS: Basophils Absolute Auto 0.1 K/mm3 (0.0-0.1); Basophils Percent Auto 0.9 % (0.2-1.2); Eosinophils Absolute Auto 0.1 K/mm3 (0-0.3); Eosinophils Percent Auto 1.4 % (0-4.4); Hematocrit 36.9 % (42.0-52.0); Hemoglobin 11.4 g/dL (14.0-18.0); Immature Granulocyte Absolute 0.03 K/mm3 (0.00-0.031); Immature Granulocyte Percent A 0.3 % (0-0.5); Lymphocytes Absolute Auto 1.27 K/mm3 (0.9-3.2); Lymphocytes Percent Auto 14.1 % (18.3-44.2); Mean Corpuscular HGB Conc 30.9 g/dl (32-36); Mean Corpuscular Hemoglobin 26.1 pg (26-34); Mean Corpuscular Volume 84.6 fl (80-100); Mean Platelet Volume 11.2 fl (7.4-10.4); Monocytes Absolute Auto 0.5 K/mm3 (0.1-0.6); Monocytes Percent Auto 5.1 % (2.6-8.5); Neutrophils Absolute Auto 7.1 K/mm3 (1.3-6.7); Neutrophils Percent Auto 78.2 % (45.5-73.1); Platelet Count Result 312 k/mm3 (150-375); Red Blood Count 4.36 M/mm3 (4.6-6.20); Red Cell Distribution Width 14.2 % (11.5-14.5)
[2023-07-22 10:07] LABS: Appearance Urine Clear (Clear); Bilirubin Urine Negative (Negative); Blood Urine Negative (Negative); Color Urine Yellow (Yellow); Glucose Urine UA 3+ mg/dL (Negative); Ketones Urine Negative (Negative); Leukocyte Esterase Ur Negative LEU/UL (Negative); Nitrate Urine Negative (Negative); Protein Urine Negative (Negative); Specific Grav Ur 1.027 (1.001-1.035); Urobilinogen Urine 0.2 mg/dL (<2.0); pH Urine 6.5 (5.0-9.0)
[2023-07-22 10:08] LABS: Hemoglobin A1C 13.5 % (<5.7)
[2023-07-22 10:19] LABS: Beta-Hydroxybutyrate/Acetoacetate 0.44 mmol/L (0.02-0.27); NT Pro B Type Natriuretic Pept 283 pg/mL (19.9-100)
[2023-07-22 10:21] LABS: Bilirubin,Total 0.7 mg/dL (0.2-1.3); Magnesium 2.7 mg/dL (1.6-2.3); Phosphorus 4.1 mg/dL (2.5-4.5); Potassium 7.2 mmol/L (3.4-5.0); Sodium 125 mmol/L (137-145)
[2023-07-22 10:22] LABS: Alanine Aminotransferase 31 U/L (6-50); Albumin Level 4.5 g/dL (3.5-5.1); Alkaline Phosphatase 107 U/L (38-126); Anion Gap 10 mmol/L (8-16); Aspartate Amino Transferase 27 U/L (17-59); Blood Urea Nitrogen 41 mg/dL (9-20); Calcium 8.7 mg/dL (8.4-10.2); Carbon Dioxide 28 mmol/L (22-30); Chloride 87 mmol/L (98-107); Estimated CRCL calculation 81 ml/min; Estimated Glomerular Filt Rate 48
[2023-07-22 10:30] LABS: Add Urine Microscopic? NO
[2023-07-22] MEDS: SODIUM CHLORIDE 0.9% IV 1,000 ML 999 ML IV CONT ×3 (10:38→13:16)
[2023-07-22] MEDS: CALCIUM GLUCONATE 1,000 MG/10 ML VIAL 1000 MG IV PUSH (10:39)
[2023-07-22] MEDS: SODIUM ZIRCONIUM CYCLOSILICATE 10 GM POWD.PACK PO (10:41)
[2023-07-22] MEDS: INSULIN HUMAN REGULAR (*BKC) 100 UNITS/ML 10 UNITS IV PUSH (10:44)
[2023-07-22 10:48] LABS: Glucose 739 mg/dL (65-110)
[2023-07-22 11:45] LABS: Glucose Point of Care > 500 mg/dl (65-105)
[2023-07-22 12:42] LABS: Glucose Point of Care > 500 mg/dl (65-105)
[2023-07-22] MEDS: INSULIN HUMAN REGULAR (*BKC) 100 UNITS in SODIUM CHLORIDE 0.9% IV 99 ML 20 UNITS IV CONT (13:11)
--- NOTE | 2023-07-22 13:40 | ADMGEN ---
This patient, Fernando Lambert, was admitted to Intensive Care Unit-3. Patient/family oriented to hospital policies and general routines including ID bracelet, bed and alarms, visiting hours, pain management, procedures, bathroom and other care routines, personal items, smoking policy, room service/diet, and visiting hours. Information on how to activate the Rapid Response Team has been discussed. Patient/Family are encouraged to report perceived risks to care and to ask questions if they do not understand what they are told or what they should do.
[2023-07-22 13:57] LABS: Glucose Point of Care > 500 mg/dl (65-105)
--- NOTE | 2023-07-22 13:58 | WPDCNINT ---
Assessment and Plan Assessment and plan (1) Hyperosmolar hyperglycemic state (HHS): Code(s): E11.00 - Type 2 diabetes mellitus with hyperosmolarity without nonketotic hyperglycemic-hyperosmolar coma (NKHHC) Status: Acute Assessment and Plan: New onset diabetes with HHS 07/22: Patient presented the ED with altered mental status hyperglycemia with blood sugars of 739 in the ER. He also complained of polyuria and polydipsia -patient was given 2 L IV fluid bolus, started on insulin infusion and transferred to the ICU for further management -will continue to monitor BMPs -NPO except ice chips for now -hemoglobin A1c is 13.5 this admission -assistant health educator and dietitian have been consulted -once blood sugars have been within normal limits will transition to long-acting insulin and sliding scale insulin and then allow the patient to have a diabetic diet (2) Acute kidney injury: Code(s): N17.9 - Acute kidney failure, unspecified Status: Acute Assessment and Plan: Acute kidney injury likely related to HHS polyuria -adequately fluid-resuscitated -will monitor renal function, electrolytes and urine output (3) Hyperkalemia: Code(s): E87.5 - Hyperkalemia Status: Acute Assessment and Plan: could be be related to hyperglycemia, hemoconcentration, patient also takes spironolactone at home -patient has been treated with insulin, Lokelma, calcium and IV fluids -repeat labs are pending (4) Cardiomyopathy: Code(s): I42.9 - Cardiomyopathy, unspecified Status: Acute Assessment and Plan: Patient has a history of nonischemic cardiomyopathy likely related to longstanding hypertension mention in the cardiology progress notes from July 2022 -patient on aspirin, atorvastatin, Lasix, metoprolol, [facility], -will restart Entresto, metoprolol hydralazine, amlodipine, aspirin and atorvastatin -will hold Lasix and spironolactone since is likely hypovolemic secondary to polyuria, leading to HHS + hyperkalemia -07/09/2022 Echocardiogram Summary ? 1. Left ventricular chamber dimension is severely enlarged. ? 2. Left ventricular systolic function is severely reduced, estimated at 20-25%. ? 3. There is severely increased left ventricular wall thickness. ? 4. The left ventricular diastolic function is grade I diastolic dysfunction. ? 5. Left atrial chamber dimension is mildly enlarged. ? 6. There is mild mitral valve regurgitation (5) HTN (hypertension), malignant: Code(s): I10 - Essential (primary) hypertension Status: Acute Assessment and Plan: Will restart home amlodipine, hydralazine and metoprolol Plan DVT prophylaxis: Lovenox Stress ulcer prophylaxis: Not indicated Nutrition: NPO for now except ice chips Code Status: Full code Critical Care Time Spent: 46 minutes Discussed with patient updated with his condition and plan of care. Due to a high probability of clinically significant, life threatening deterioration, the patient required my highest level of preparedness to intervene emergently and I personally spent this critical care time directly and personally managing the patient. This critical care time included obtaining a history; examining the patient; pulse oximetry; ordering and review of studies; arranging urgent treatment with development of a management plan; evaluation of patient's response to treatment; frequent reassessment; and discussions with other providers. It was exclusive of separately billable procedures and treating other patients and teaching time. Please see Assessment and Plan section and the rest of the note for further information on patient assessment and treatment This dictation may have been done utilizing a voice recognition system. Attempts have been made to correct errors. However, there may be uncorrected grammatical, spelling, and recognitions errors present. [facility] Consult Note Con
[2023-07-22 15:12] LABS: Glucose Point of Care 481 mg/dl (65-105)
[2023-07-22 15:23] LABS: Anion Gap 9 mmol/L (8-16); Blood Urea Nitrogen 35 mg/dL (9-20); Calcium 8.7 mg/dL (8.4-10.2); Carbon Dioxide 28 mmol/L (22-30); Chloride 96 mmol/L (98-107); Estimated CRCL calculation 86 ml/min; Estimated Glomerular Filt Rate 52; Glucose 451 mg/dL (65-110); Magnesium 2.8 mg/dL (1.6-2.3); Phosphorus 3.8 mg/dL (2.5-4.5); Potassium 4.8 mmol/L (3.4-5.0); Sodium 133 mmol/L (137-145)
[2023-07-22 15:25] LABS: Anion Gap 8 mmol/L (8-16); Blood Urea Nitrogen 35 mg/dL (9-20); Calcium 8.7 mg/dL (8.4-10.2); Carbon Dioxide 29 mmol/L (22-30); Chloride 96 mmol/L (98-107); Estimated CRCL calculation 82 ml/min; Estimated Glomerular Filt Rate 48; Glucose 450 mg/dL (65-110); Potassium 4.8 mmol/L (3.4-5.0); Sodium 133 mmol/L (137-145)
[2023-07-22 16:07] LABS: Glucose Point of Care 321 mg/dl (65-105)
[2023-07-22] MEDS: SODIUM CHLORIDE 0.9% IV 1,000 ML 75 ML IV CONT (16:08)
[2023-07-22 16:14] LABS: Appearance Urine Clear (Clear); Bilirubin Urine Negative (Negative); Blood Urine Negative (Negative); Color Urine Yellow (Yellow); Glucose Urine UA 3+ mg/dL (Negative); Ketones Urine Negative (Negative); Leukocyte Esterase Ur Negative LEU/UL (NEGATIVE); Nitrate Urine Negative (Negative); Protein Urine Negative (Negative); Specific Grav Ur 1.026 (1.001-1.035); Urobilinogen Urine 0.2 mg/dL (<2.0); pH Urine 5.5 (5.0-9.0)
[2023-07-22 16:21] LABS: Add Urine Microscopic? NO
[2023-07-22 17:03] LABS: Glucose Point of Care 220 mg/dl (65-105)
[2023-07-22] MEDS: INSULIN HUMAN REGULAR (*BKC) 100 UNITS in SODIUM CHLORIDE 0.9% IV 99 ML 29.5 UNITS IV CONT (17:12)
[2023-07-22 17:59] LABS: Glucose Point of Care 117 mg/dl (65-105)
[2023-07-22] MEDS: INSULIN GLARGINE (*BKC) 100 UNITS/ML 40 UNITS SUB-Q (18:43)
[2023-07-22] MEDS: hydrALAZINE HCL 50 MG TABLET 100 MG PO (18:43)
[2023-07-22 18:58] LABS: Anion Gap 10 mmol/L (8-16); Blood Urea Nitrogen 34 mg/dL (9-20); Carbon Dioxide 27 mmol/L (22-30); Chloride 101 mmol/L (98-107); Estimated CRCL calculation 97 ml/min; Estimated Glomerular Filt Rate 60; Glucose 87 mg/dL (65-110); Potassium 4.7 mmol/L (3.4-5.0); Sodium 138 mmol/L (137-145)
[2023-07-22 19:04] LABS: Glucose Point of Care 118 mg/dl (65-105)
[2023-07-22 19:41] LABS: Glucose Point of Care 202 mg/dl (65-105)
[2023-07-22] MEDS: ATORVASTATIN 40 MG TABLET PO (20:48)
[2023-07-22] MEDS: SACUBITRIL/VALSARTAN 24-26 MG TABLET 1 TAB PO (20:48)
[2023-07-22 20:54] LABS: Glucose Point of Care 295 mg/dl (65-105)
[2023-07-22] MEDS: ALBUTEROL SULFATE NEB 2.5 MG/3 ML INH INHALATION (20:54)
[2023-07-22] MEDS: IPRATROPIUM BR 0.02% INH SOLN 0.5 MG/2.5 ML VIAL INHALATION (20:55)
[2023-07-22] MEDS: INSULIN ASPART (*BKC) 100 UNITS/ML SUB-Q (21:05)
--- NOTE | 2023-07-22 22:13 | PM.IMHP ---
H&P: HPI History of Present Illness Date/Time: 07/22/23 22:13 Chief Complaint: AMS Narrative: 53 y/o M presented here with AMS and hyperglycemia this morning with PMH of cardiomyopathy, HTN, OK, TIA, and obesity w/related mobility reduction. Patient is currently residing at [facility]. Per patient he remembers sitting down to breakfast, then waking in the emergency department. EMS reported that the facility called due to patient becoming altered, obtunded, and slow to respond. Blood glucose was assessed and reading HIGH. he reports in the last few days that he has been experiencing increased thirst, urinary frequency, decreased appetite. Reports filling 3 urinals per night. denies chest pain, dizziness, lightheadedness, nausea, diarrhea, or vomiting. no previous history of diabetes. Review of Systems Review of Systems: All systems reviewed & are unremarkable except as noted in HPI and below PMFSH Past Medical History Medical History (Updated 07/22/23 @ 22:20 by Monique Varner APRN) Cardiomyopathy History of myocardial infarction HTN (hypertension), malignant Obesity TIA (transient ischemic attack) Surgical History Surgical History H/O eye surgery Family History Family History (Updated 07/22/23 @ 22:20 by Monique Varner APRN) Unknown Family history unknown denied FH of genetic disorders, early heart disease, or cancers Social History Social History (Updated 07/22/23 @ 22:21 by Monique Varner APRN) Social History: Patient resides at [facility]. He is Single and has no children. He is a former smoker. He states that he does not have a durable power real estate attorney for healthcare. The patient denies any alcohol marijuana or illicit drugs. Surrogate decision maker William Lambert, father. Code status full code Smoking status: Former smoker Spiritual care concerns: No Meds Home Medications and Allergies Home Medications Medication Instructions Recorded Confirmed Type acetaminophen 325 mg tablet 325 mg PO PRN PRN Fever Or Pain 07/08/22 07/22/23 History albuterol sulfate 90 mcg/actuation 2 puff inhalation Q6H PRN 07/08/22 07/22/23 History aerosol inhaler (Proventil HFA) Shortness Of Breath amlodipine 10 mg tablet 10 mg PO DAILY 07/08/22 07/22/23 History aspirin 81 mg tablet,delayed 81 mg PO DAILY 07/08/22 07/22/23 History release benzocaine 10 % mucosal gel 1 applic mucous membrane BID 07/08/22 07/22/23 History (Anbesol (benzocaine)) eucalyptus oil-aloe 1 ea topical BID PRN Congestion 07/08/22 07/22/23 History extr-lavender,young oil-petrolatum top ointment (Vicks Babyrub topical ointment) famotidine 40 mg tablet 40 mg PO BID 07/08/22 07/22/23 History ferrous sulfate 325 mg (65 mg 325 mg PO BID 07/08/22 07/22/23 History iron) tablet fluticasone propionate 50 1 spray intranasal BID 07/08/22 07/22/23 History mcg/actuation nasal spray,suspension (Flonase Allergy Relief) folic acid 1 mg tablet 1 mg PO DAILY 07/08/22 07/22/23 History furosemide 40 mg tablet 40 mg PO BID 07/08/22 07/22/23 History hydralazine 100 mg tablet 100 mg PO TID 07/08/22 07/22/23 History loperamide 2 mg capsule 2 mg PO USEASDIRECTD PRN Diarrhea 07/08/22 07/22/23 History magnesium hydroxide 400 mg/5 mL 30 ml PO BID PRN Constipation 07/08/22 07/22/23 History oral suspension (Milk of Magnesia) magnesium oxide 400 mg PO BID 07/08/22 07/22/23 History metoprolol succinate 100 mg 100 mg PO DAILY 07/08/22 07/22/23 History tablet,extended release 24 hr nitroglycerin 0.4 mg sublingual 0.4 mg sublingual USEASDIRECTD PRN 07/08/22 07/22/23 History tablet Chest Pain atorvastatin 40 mg tablet 40 mg PO HS #30 tabs 07/10/22 07/22/23 Rx sacubitril 24 mg-valsartan 26 mg 1 tablet PO Q12HR #60 tabs 07/10/22 07/22/23 Rx tablet (Entresto) spironolactone 25 mg tablet 25 mg PO QAM #30 tabs
[2023-07-23] VITALS (28 sets, daily range): BP systolic 98–154; BP diastolic 59–95; PULSE 74–115; RESP 11–20; TEMP 36.6–36.8; O2SAT 92–100; BMI 56.2
[2023-07-23] MEDS: ALBUTEROL SULFATE NEB 2.5 MG/3 ML INH INHALATION ×4 (02:40→20:36)
[2023-07-23] MEDS: IPRATROPIUM BR 0.02% INH SOLN 0.5 MG/2.5 ML VIAL INHALATION ×4 (02:40→20:36)
[2023-07-23 05:13] LABS: Basophils Absolute Auto 0.1 K/mm3 (0.0-0.1); Basophils Percent Auto 0.8 % (0.2-1.2); Eosinophils Absolute Auto 0.3 K/mm3 (0-0.3); Eosinophils Percent Auto 3.1 % (0-4.4); Hematocrit 33.4 % (42.0-52.0); Hemoglobin 10.3 g/dL (14.0-18.0); Immature Granulocyte Absolute 0.02 K/mm3 (0.00-0.031); Immature Granulocyte Percent A 0.2 % (0-0.5); Lymphocytes Absolute Auto 2.37 K/mm3 (0.9-3.2); Lymphocytes Percent Auto 26.8 % (18.3-44.2); Mean Corpuscular HGB Conc 30.8 g/dl (32-36); Mean Corpuscular Hemoglobin 25.9 pg (26-34); Mean Corpuscular Volume 84.1 fl (80-100); Mean Platelet Volume 11.4 fl (7.4-10.4); Monocytes Absolute Auto 0.6 K/mm3 (0.1-0.6); Monocytes Percent Auto 6.4 % (2.6-8.5); Neutrophils Absolute Auto 5.6 K/mm3 (1.3-6.7); Neutrophils Percent Auto 62.7 % (45.5-73.1); Platelet Count Result 276 k/mm3 (150-375); Red Blood Count 3.97 M/mm3 (4.6-6.20); Red Cell Distribution Width 14.3 % (11.5-14.5); White Blood Count 8.9 K/mm3 (4.5-10.0)
[2023-07-23 05:28] LABS: Alanine Aminotransferase 26 U/L (6-50); Albumin Level 3.8 g/dL (3.5-5.1); Alkaline Phosphatase 86 U/L (38-126); Anion Gap 8 mmol/L (8-16); Aspartate Amino Transferase 32 U/L (17-59); Bilirubin,Total 0.6 mg/dL (0.2-1.3); Blood Urea Nitrogen 33 mg/dL (9-20); Carbon Dioxide 27 mmol/L (22-30); Chloride 97 mmol/L (98-107); Estimated CRCL calculation 97 ml/min; Estimated Glomerular Filt Rate 60; Glucose 429 mg/dL (65-110); Magnesium 2.4 mg/dL (1.6-2.3); Potassium 4.5 mmol/L (3.4-5.0); Sodium 132 mmol/L (137-145)
[2023-07-23 06:08] LABS: Glucose Point of Care 457 mg/dl (65-105)
[2023-07-23 07:34] LABS: Glucose Point of Care 407 mg/dl (65-105)
[2023-07-23] MEDS: hydrALAZINE HCL 50 MG TABLET 100 MG PO ×2 (08:11→11:29)
[2023-07-23] MEDS: METOPROLOL SUCCINATE EXT REL 100 MG TABCR PO (08:11)
[2023-07-23] MEDS: SACUBITRIL/VALSARTAN 24-26 MG TABLET 1 TAB PO ×2 (08:11→20:55)
[2023-07-23] MEDS: ENOXAPARIN 40 MG/0.4 ML SYRINGE SUB-Q (08:12)
[2023-07-23] MEDS: INSULIN HUMAN REGULAR (*BKC) 100 UNITS/ML 10 UNITS IV PUSH (08:12)
[2023-07-23] MEDS: INSULIN GLARGINE (*BKC) 100 UNITS/ML 30 UNITS SUB-Q ×2 (08:12→20:55)
[2023-07-23] MEDS: amLODIPine BESYLATE 5 MG TABLET 10 MG PO (08:12)
[2023-07-23] MEDS: ASPIRIN 81 MG ENTERIC TABLET PO (08:12)
--- NOTE | 2023-07-23 08:56 | WPDINTPN ---
Progress Note: A&P Assessment and Plan (1) Hyperosmolar hyperglycemic state (HHS): Code(s): E11.00 - Type 2 diabetes mellitus with hyperosmolarity without nonketotic hyperglycemic-hyperosmolar coma (NKHHC) Status: Acute Assessment and Plan: New onset diabetes with HHS 07/22: Patient presented the ED with altered mental status hyperglycemia with blood sugars of 739 in the ER. He also complained of polyuria and polydipsia -patient was given 2 L IV fluid bolus, started on insulin infusion and transferred to the ICU for further management -will continue to monitor BMPs -NPO except ice chips for now -hemoglobin A1c is 13.5 this admission -software educator and dietitian have been consulted -patient has been transition to long-acting insulin and sliding scale insulin 07/22/2023 -will increase Lantus and will add insulin at bedtime -will give 1 dose of regular insulin IV this morning (2) Acute kidney injury: Code(s): N17.9 - Acute kidney failure, unspecified Status: Acute Assessment and Plan: Acute kidney injury likely related to HHS polyuria -adequately fluid-resuscitated -will monitor renal function, electrolytes and urine output (3) Hyperkalemia: Code(s): E87.5 - Hyperkalemia Status: Acute Assessment and Plan: could be be related to hyperglycemia, hemoconcentration, patient also takes spironolactone at home -patient has been treated in the ER and ICU with insulin, Lokelma, calcium and IV fluids -07/23: Potassium was normalized (4) Cardiomyopathy: Code(s): I42.9 - Cardiomyopathy, unspecified Status: Acute Assessment and Plan: Patient has a history of nonischemic cardiomyopathy likely related to longstanding hypertension mention in the cardiology progress notes from July 2022 -patient on aspirin, atorvastatin, Lasix, metoprolol, Entresto and [facility]one [facility], -will restart Entresto, metoprolol hydralazine, amlodipine, aspirin and atorvastatin -will hold Lasix and spironolactone since is likely hypovolemic secondary to polyuria, leading to HHS + hyperkalemia -07/09/2022 Echocardiogram Summary ? 1. Left ventricular chamber dimension is severely enlarged. ? 2. Left ventricular systolic function is severely reduced, estimated at 20-25%. ? 3. There is severely increased left ventricular wall thickness. ? 4. The left ventricular diastolic function is grade I diastolic dysfunction. ? 5. Left atrial chamber dimension is mildly enlarged. ? 6. There is mild mitral valve regurgitation (5) HTN (hypertension), malignant: Code(s): I10 - Essential (primary) hypertension Status: Acute Assessment and Plan: Continue home amlodipine, hydralazine and metoprolol Plan DVT prophylaxis: Lovenox Stress ulcer prophylaxis: Not indicated Nutrition: Diabetic diet Code Status: Full code Critical Care Time Spent: 32 minutes Discussed with patient updated with his condition and plan of care. Due to a high probability of clinically significant, life threatening deterioration, the patient required my highest level of preparedness to intervene emergently and I personally spent this critical care time directly and personally managing the patient. This critical care time included obtaining a history; examining the patient; pulse oximetry; ordering and review of studies; arranging urgent treatment with development of a management plan; evaluation of patient's response to treatment; frequent reassessment; and discussions with other providers. It was exclusive of separately billable procedures and treating other patients and teaching time. Please see Assessment and Plan section and the rest of the note for further information on patient assessment and treatment This dictation may have been done utilizing a voice recognition system. Attempts have been made to correct errors. However, there may be uncorrected grammatical, spelling, and recognitions errors pr
[2023-07-23 09:52] LABS: Glucose Point of Care 440 mg/dl (65-105)
[2023-07-23] MEDS: INSULIN GLARGINE (*BKC) 100 UNITS/ML 20 UNITS SUB-Q (10:02)
[2023-07-23 11:15] LABS: Glucose Point of Care 419 mg/dl (65-105)
[2023-07-23] MEDS: INSULIN ASPART (*BKC) 100 UNITS/ML 10 UNITS SUB-Q (11:29)
--- NOTE | 2023-07-23 12:38 | PCDIET ---
Nutrition consult for DKA admission. See Nutritional Teaching Intervention. Thank you for the consult.
[2023-07-23 12:52] LABS: Glucose Point of Care 449 mg/dl (65-105)
[2023-07-23] MEDS: INSULIN HUMAN REGULAR (*BKC) 100 UNITS in SODIUM CHLORIDE 0.9% IV 99 ML 20 UNITS IV CONT (13:21)
[2023-07-23 14:26] LABS: Glucose Point of Care 381 mg/dl (65-105)
[2023-07-23 15:25] LABS: Glucose Point of Care 286 mg/dl (65-105)
[2023-07-23 16:25] LABS: Glucose Point of Care 183 mg/dl (65-105)
[2023-07-23] MEDS: INSULIN HUMAN REGULAR (*BKC) 100 UNITS in SODIUM CHLORIDE 0.9% IV 99 ML 8 UNITS IV CONT (17:28)
[2023-07-23 17:32] LABS: Glucose Point of Care 170 mg/dl (65-105)
[2023-07-23 18:21] LABS: Glucose Point of Care 201 mg/dl (65-105)
[2023-07-23 19:36] LABS: Glucose Point of Care 265 mg/dl (65-105)
[2023-07-23 20:38] LABS: Glucose Point of Care 261 mg/dl (65-105)
[2023-07-23] MEDS: ATORVASTATIN 40 MG TABLET PO (20:55)
[2023-07-23 21:35] LABS: Glucose Point of Care 312 mg/dl (65-105)
[2023-07-23 22:35] LABS: Glucose Point of Care 332 mg/dl (65-105)
[2023-07-23 23:44] LABS: Glucose Point of Care 352 mg/dl (65-105)
[2023-07-24] VITALS (21 sets, daily range): BP systolic 103–131; BP diastolic 58–105; PULSE 69–106; RESP 12–22; TEMP 36.6–37.3; O2SAT 95–100
[2023-07-24 00:37] LABS: Glucose Point of Care 338 mg/dl (65-105)
[2023-07-24 01:39] LABS: Glucose Point of Care 262 mg/dl (65-105)
[2023-07-24] MEDS: IPRATROPIUM BR 0.02% INH SOLN 0.5 MG/2.5 ML VIAL INHALATION ×4 (02:43→18:20)
[2023-07-24] MEDS: ALBUTEROL SULFATE NEB 2.5 MG/3 ML INH INHALATION ×4 (02:46→18:20)
[2023-07-24] MEDS: INSULIN HUMAN REGULAR (*BKC) 100 UNITS in SODIUM CHLORIDE 0.9% IV 99 ML 12 UNITS IV CONT (02:47)
[2023-07-24 03:38] LABS: Basophils Absolute Auto 0.1 K/mm3 (0.0-0.1); Basophils Percent Auto 0.8 % (0.2-1.2); Eosinophils Absolute Auto 0.4 K/mm3 (0-0.3); Eosinophils Percent Auto 4.4 % (0-4.4); Hematocrit 34.1 % (42.0-52.0); Hemoglobin 10.6 g/dL (14.0-18.0); Immature Granulocyte Absolute 0.03 K/mm3 (0.00-0.031); Immature Granulocyte Percent A 0.3 % (0-0.5); Lymphocytes Absolute Auto 2.53 K/mm3 (0.9-3.2); Lymphocytes Percent Auto 26.8 % (18.3-44.2); Mean Corpuscular HGB Conc 31.1 g/dl (32-36); Mean Corpuscular Hemoglobin 26.3 pg (26-34); Mean Corpuscular Volume 84.6 fl (80-100); Mean Platelet Volume 11.1 fl (7.4-10.4); Monocytes Absolute Auto 0.7 K/mm3 (0.1-0.6); Monocytes Percent Auto 7.1 % (2.6-8.5); Neutrophils Absolute Auto 5.7 K/mm3 (1.3-6.7); Neutrophils Percent Auto 60.6 % (45.5-73.1); Platelet Count Result 273 k/mm3 (150-375); Red Blood Count 4.03 M/mm3 (4.6-6.20); Red Cell Distribution Width 14.4 % (11.5-14.5); White Blood Count 9.4 K/mm3 (4.5-10.0)
[2023-07-24 03:50] LABS: Alanine Aminotransferase 26 U/L (6-50); Albumin Level 3.9 g/dL (3.5-5.1); Alkaline Phosphatase 72 U/L (38-126); Anion Gap 6 mmol/L (8-16); Aspartate Amino Transferase 31 U/L (17-59); Bilirubin,Total 0.3 mg/dL (0.2-1.3); Blood Urea Nitrogen 28 mg/dL (9-20); Calcium 8.1 mg/dL (8.4-10.2); Carbon Dioxide 27 mmol/L (22-30); Chloride 103 mmol/L (98-107); Estimated CRCL calculation 104 ml/min; Estimated Glomerular Filt Rate > 60; Glucose 179 mg/dL (65-110); Magnesium 2.4 mg/dL (1.6-2.3); Phosphorus 3.5 mg/dL (2.5-4.5); Potassium 4.4 mmol/L (3.4-5.0); Sodium 136 mmol/L (137-145)
[2023-07-24 04:57] LABS: Glucose Point of Care 200 mg/dl (65-105)
[2023-07-24 05:00] LABS: Glucose Point of Care 133 mg/dl (65-105)
[2023-07-24 06:05] LABS: Glucose Point of Care 167 mg/dl (65-105)
[2023-07-24 07:00] LABS: Glucose Point of Care 205 mg/dl (65-105)
[2023-07-24] MEDS: INSULIN ASPART (*BKC) 100 UNITS/ML SUB-Q ×4 (08:03→20:20)
[2023-07-24] MEDS: INSULIN GLARGINE (*BKC) 100 UNITS/ML 50 UNITS SUB-Q ×2 (08:03→20:20)
[2023-07-24] MEDS: ASPIRIN 81 MG ENTERIC TABLET PO (08:08)
[2023-07-24] MEDS: SACUBITRIL/VALSARTAN 24-26 MG TABLET 1 TAB PO ×2 (08:08→20:14)
[2023-07-24 08:09] LABS: Glucose Point of Care 215 mg/dl (65-105)
[2023-07-24] MEDS: ENOXAPARIN 40 MG/0.4 ML SYRINGE SUB-Q (08:09)
--- NOTE | 2023-07-24 09:19 | WPDINTPN ---
Progress Note: A&P Assessment and Plan (1) Hyperosmolar hyperglycemic state (HHS): Code(s): E11.00 - Type 2 diabetes mellitus with hyperosmolarity without nonketotic hyperglycemic-hyperosmolar coma (NKHHC) Status: Acute Assessment and Plan: New onset diabetes with HHS 07/22: Patient presented the ED with altered mental status hyperglycemia with blood sugars of 739 in the ER. He also complained of polyuria and polydipsia -patient was given 2 L IV fluid bolus, started on insulin infusion and transferred to the ICU for further management -will continue to monitor BMPs -NPO except ice chips for now -hemoglobin A1c is 13.5 this admission -appreciate family educator and dietitian evaluation and recommendation -patient was transitioned to long-acting insulin and sliding scale insulin 07/22/2023, but had to be restarted on insulin infusion 07/23 as blood sugars remained in the 400s on multiple occasions. -07/24: Blood sugars are much improvement patient is on insulin infusion at 1 unit/hour -will increase Lantus and will discontinue the insulin infusion and continue to monitor his blood sugars -patient has a very big appetite (2) Acute kidney injury: Code(s): N17.9 - Acute kidney failure, unspecified Status: Acute Assessment and Plan: Acute kidney injury likely related to HHS polyuria -adequately fluid-resuscitated -will monitor renal function, electrolytes and urine output -creatinine improving (3) Hyperkalemia: Code(s): E87.5 - Hyperkalemia Status: Acute Assessment and Plan: could be be related to hyperglycemia, hemoconcentration, patient also takes spironolactone at home -patient has been treated in the ER and ICU with insulin, Lokelma, calcium and IV fluids -potassium level remains normal (4) Cardiomyopathy: Code(s): I42.9 - Cardiomyopathy, unspecified Status: Acute Assessment and Plan: Patient has a history of nonischemic cardiomyopathy likely related to longstanding hypertension mention in the cardiology progress notes from July 2022 -patient on aspirin, atorvastatin, Lasix, metoprolol, Entresto and sp[facility]olactone at the [facility] home, -blood pressures are borderline, will hold Entresto, metoprolol hydralazine, amlodipine, -continue aspirin and atorvastatin -will hold Lasix and spironolactone since is likely hypovolemic secondary to polyuria, leading to HHS + hyperkalemia -07/09/2022 Echocardiogram Summary ? 1. Left ventricular chamber dimension is severely enlarged. ? 2. Left ventricular systolic function is severely reduced, estimated at 20-25%. ? 3. There is severely increased left ventricular wall thickness. ? 4. The left ventricular diastolic function is grade I diastolic dysfunction. ? 5. Left atrial chamber dimension is mildly enlarged. ? 6. There is mild mitral valve regurgitation (5) HTN (hypertension), malignant: Code(s): I10 - Essential (primary) hypertension Status: Acute Assessment and Plan: On amlodipine, hydralazine and metoprolol Plan DVT prophylaxis: Lovenox Stress ulcer prophylaxis: Not indicated Nutrition: Diabetic diet Code Status: Full code Critical Care Time Spent: 32 minutes Discussed with patient updated with his condition and plan of care. Due to a high probability of clinically significant, life threatening deterioration, the patient required my highest level of preparedness to intervene emergently and I personally spent this critical care time directly and personally managing the patient. This critical care time included obtaining a history; examining the patient; pulse oximetry; ordering and review of studies; arranging urgent treatment with development of a management plan; evaluation of patient's response to treatment; frequent reassessment; and discussions with other providers. It was exclusive of separately billable procedures and treating other patients and teaching time. Please see Assessment and
[2023-07-24 10:22] LABS: Glucose Point of Care 395 mg/dl (65-105)
[2023-07-24] MEDS: PIPERACILLIN/TAZ 4.5G/NS 100ML 4.5 GM/100 ML BAG IVPB ×2 (11:57→17:06)
[2023-07-24 14:04] LABS: Glucose Point of Care 366 mg/dl (65-105)
[2023-07-24 16:02] LABS: Glucose Point of Care 330 mg/dl (65-105)
[2023-07-24] MEDS: INSULIN ASPART (*BKC) 100 UNITS/ML 8 UNITS SUB-Q (16:03)
[2023-07-24] MEDS: hydrALAZINE HCL 50 MG TABLET 100 MG PO (16:04)
--- NOTE | 2023-07-24 18:33 | PM.CNGS ---
Assessment and Plan Assessment and plan (1) Subcutaneous mass of back: Code(s): R22.2 - Localized swelling, mass and lump, trunk Status: Chronic Assessment and Plan: I think this is from scarring or fat necrosis due to folliculitis and morbid obesity. It probably should be imaged although I am not sure patient can fit in the CT scanner. It does not appear to be an abscess. I sees no signs on the skin of an active infection. Thank you for asking me to see this patient in consultation. Follow up with his primary care physician to evaluate this further following discharge is recommended. History of Present Illness Consult details Consult date: 07/24/23 Reason for consult: other (Back mass) Requesting physician: Ld Ramirez MD Narrative: Patient is a 53-year-old man who came to the emergency room with hyperosmolar hyperglycemia. He is a resident of [facility] and had altered mental status there with hyperglycemia. He has a very large man, 6 ft 4 in. and 450 lb. Was asked to see the patient regarding a mass in his back that could possibly be an abscess. Patient had no particular complaints of his back. He did ask me about getting his toenails trimmed. Review of Systems Review of Systems: All systems reviewed & are unremarkable except as noted in HPI and below (HPI and those items noted below) Constitutional: Constitutional: Denies chills and Denies fever(s) Cardiovascular: Cardiovascular: Denies chest pain, Denies diaphoresis, Denies dyspnea and Denies paroxysmal nocturnal dyspnea Respiratory: Respiratory: Denies chest congestion, Denies cough and Denies dyspnea Integumentary/Breasts: Skin/Breast: Denies lesions and Denies rash PMFSH Past Medical History Medical History Cardiomyopathy History of myocardial infarction HTN (hypertension), malignant Obesity TIA (transient ischemic attack) Surgical History Surgical History H/O eye surgery Family History Family History Unknown Family history unknown denied FH of genetic disorders, early heart disease, or cancers Social History Social History Social History: [facility] He is Single and has no children. He is a former smoker. He states that he does not have a durable power rn security for healthcare. The patient denies any alcohol marijuana or illicit drugs. Surrogate decision maker William Lambert, father. Code status full code Smoking status: Former smoker Alcohol intake: unknown Substance use: unknown Substance use type: does not use Lack of Transportation: No Lack of Food: Never True Current Housing: I Have Housing Concerned About Future Housing: No Difficulty Paying Gas/Electric Bills: No Difficulty Paying for Meds: No Currently Unemployed: No Education: Don't Know Difficulty w/ Childcare or Family Care: No Spiritual care concerns: No Meds Home Medications and Allergies Home Medications Medication Instructions Recorded Confirmed Type acetaminophen 325 mg tablet 325 mg PO PRN PRN Fever Or Pain 07/08/22 07/22/23 History albuterol sulfate 90 mcg/actuation 2 puff inhalation Q6H PRN 07/08/22 07/22/23 History aerosol inhaler (Proventil HFA) Shortness Of Breath amlodipine 10 mg tablet 10 mg PO DAILY 07/08/22 07/22/23 History aspirin 81 mg tablet,delayed 81 mg PO DAILY 07/08/22 07/22/23 History release benzocaine 10 % mucosal gel 1 applic mucous membrane BID 07/08/22 07/22/23 History (Anbesol (benzocaine)) eucalyptus oil-aloe 1 ea topical BID PRN Congestion 07/08/22 07/22/23 History extr-lavender,young oil-petrolatum top ointment (Vicks Babyrub topical ointment) famotidine 40 mg tablet 40 mg PO BID 0
[2023-07-24] MEDS: ATORVASTATIN 40 MG TABLET PO (20:15)
[2023-07-24 20:31] LABS: Glucose Point of Care 338 mg/dl (65-105)
[2023-07-25] VITALS (25 sets, daily range): BP systolic 106–149; BP diastolic 68–93; PULSE 77–119; RESP 13–22; TEMP 36.6–37.1; O2SAT 88–100
[2023-07-25] MEDS: PIPERACILLIN/TAZ 4.5G/NS 100ML 4.5 GM/100 ML BAG IVPB ×4 (01:00→16:49)
[2023-07-25] MEDS: ALBUTEROL SULFATE NEB 2.5 MG/3 ML INH INHALATION ×4 (03:07→20:29)
[2023-07-25] MEDS: IPRATROPIUM BR 0.02% INH SOLN 0.5 MG/2.5 ML VIAL INHALATION ×4 (03:07→20:29)
[2023-07-25 04:30] LABS: Basophils Absolute Auto 0.1 K/mm3 (0.0-0.1); Eosinophils Absolute Auto 0.4 K/mm3 (0-0.3); Eosinophils Percent Auto 4.7 % (0-4.4); Hemoglobin 10.5 g/dL (14.0-18.0); Immature Granulocyte Absolute 0.03 K/mm3 (0.00-0.031); Immature Granulocyte Percent A 0.3 % (0-0.5); Lymphocytes Absolute Auto 2.32 K/mm3 (0.9-3.2); Lymphocytes Percent Auto 26.4 % (18.3-44.2); Mean Corpuscular HGB Conc 30.9 g/dl (32-36); Mean Corpuscular Hemoglobin 26.3 pg (26-34); Mean Corpuscular Volume 85.2 fl (80-100); Monocytes Absolute Auto 0.7 K/mm3 (0.1-0.6); Monocytes Percent Auto 7.4 % (2.6-8.5); Neutrophils Absolute Auto 5.3 K/mm3 (1.3-6.7); Neutrophils Percent Auto 60.2 % (45.5-73.1); Platelet Count Result 249 k/mm3 (150-375); Red Blood Count 3.99 M/mm3 (4.6-6.20); Red Cell Distribution Width 14.3 % (11.5-14.5); White Blood Count 8.8 K/mm3 (4.5-10.0)
[2023-07-25 04:45] LABS: Alanine Aminotransferase 26 U/L (6-50); Albumin Level 3.8 g/dL (3.5-5.1); Alkaline Phosphatase 74 U/L (38-126); Anion Gap 8 mmol/L (8-16); Aspartate Amino Transferase 28 U/L (17-59); Bilirubin,Total 0.5 mg/dL (0.2-1.3); Blood Urea Nitrogen 20 mg/dL (9-20); Calcium 8.3 mg/dL (8.4-10.2); Carbon Dioxide 26 mmol/L (22-30); Chloride 102 mmol/L (98-107); Estimated CRCL calculation 111 ml/min; Estimated Glomerular Filt Rate > 60; Glucose 259 mg/dL (65-110); Phosphorus 3.3 mg/dL (2.5-4.5); Potassium 4.7 mmol/L (3.4-5.0); Sodium 136 mmol/L (137-145)
[2023-07-25 05:00] LABS: Procalcitonin 0.1 ng/mL
--- NOTE | 2023-07-25 07:44 | WPDINTPN ---
Progress Note: A&P Assessment and Plan (1) Hyperosmolar hyperglycemic state (HHS): Code(s): E11.00 - Type 2 diabetes mellitus with hyperosmolarity without nonketotic hyperglycemic-hyperosmolar coma (NKHHC) Status: Acute Assessment and Plan: New onset diabetes with HHS 07/22: Patient presented the ED with altered mental status hyperglycemia with blood sugars of 739 in the ER. He also complained of polyuria and polydipsia -adequately fluid-resuscitated, started on insulin infusion and transferred to the ICU for further management -hemoglobin A1c is 13.5 this admission -appreciate typing element machine operator and dietitian evaluation and recommendation -07/22: patient was transitioned to long-acting insulin and sliding scale insulin but had to be restarted on insulin infusion 07/23 as blood sugars remained in the 400s on multiple occasions. -07/24: Blood sugars are much improvement patient is on insulin infusion at 1 unit/hour -will increase Lantus and will discontinue the insulin infusion and continue to monitor his blood sugars -patient has a very big appetite -07/25: Will increase Lantus, patient on high-dose sliding scale insulin and additional insulin coverage with meals (2) Acute kidney injury: Code(s): N17.9 - Acute kidney failure, unspecified Status: Acute Assessment and Plan: Acute kidney injury likely related to HHS polyuria -adequately fluid-resuscitated -will monitor renal function, electrolytes and urine output -good urine output -creatinine at baseline (3) Hyperkalemia: Code(s): E87.5 - Hyperkalemia Status: Acute Assessment and Plan: could be be related to hyperglycemia, hemoconcentration, patient also takes spironolactone at home -patient has been treated in the ER and ICU with insulin, Lokelma, calcium and IV fluids -potassium level remains normal (4) Cardiomyopathy: Code(s): I42.9 - Cardiomyopathy, unspecified Status: Acute Assessment and Plan: Patient has a history of nonischemic cardiomyopathy likely related to longstanding hypertension mention in the cardiology progress notes from July 2022 -patient on aspirin, atorvastatin, Lasix, metoprolol, Entresto and spironolactone at the [facility], -continue Entresto, metoprolol hydralazine, amlodipine, -continue aspirin and atorvastatin -will hold Lasix and spironolactone since is likely hypovolemic secondary to polyuria, leading to HHS + hyperkalemia. Patient is auto diuresing -07/09/2022 Echocardiogram Summary ? 1. Left ventricular chamber dimension is severely enlarged. ? 2. Left ventricular systolic function is severely reduced, estimated at 20-25%. ? 3. There is severely increased left ventricular wall thickness. ? 4. The left ventricular diastolic function is grade I diastolic dysfunction. ? 5. Left atrial chamber dimension is mildly enlarged. ? 6. There is mild mitral valve regurgitation (5) HTN (hypertension), malignant: Code(s): I10 - Essential (primary) hypertension Status: Acute Assessment and Plan: On amlodipine, hydralazine and metoprolol (6) Subcutaneous mass of back: Code(s): R22.2 - Localized swelling, mass and lump, trunk Status: Chronic Assessment and Plan: Localized swelling on the back lower thoracic and upper lumbar region 6 x 4 cm non fluctuant, non mobile mass, no erythema, no warmth, nontender mass. -appreciate surgery evaluation and recommendations -continue Zosyn (07/24) -07/25: CT scan of the thoracic and lumbar region 1. Soft tissue induration left lower back involving the fat at approximately the T11-L3 levels. Considerations include posttraumatic hematoma and infection. Correlate clinically. No discrete abscess identified. 2: Moderate lumbar spondylosis Plan DVT prophylaxis: Lovenox Stress ulcer prophylaxis: Not indicated Nutrition: Diabetic diet Code Status: Full code Critical Care Time Spent: 32 minutes Discussed wit
[2023-07-25 08:25] LABS: Glucose Point of Care 348 mg/dl (65-105)
[2023-07-25] MEDS: hydrALAZINE HCL 50 MG TABLET 100 MG PO (08:27)
[2023-07-25] MEDS: amLODIPine BESYLATE 5 MG TABLET 10 MG PO (08:27)
[2023-07-25] MEDS: SACUBITRIL/VALSARTAN 24-26 MG TABLET 1 TAB PO ×2 (08:27→20:52)
[2023-07-25] MEDS: ASPIRIN 81 MG ENTERIC TABLET PO (08:27)
[2023-07-25] MEDS: INSULIN ASPART (*BKC) 100 UNITS/ML 8 UNITS SUB-Q ×3 (08:27→16:47)
[2023-07-25] MEDS: ENOXAPARIN 40 MG/0.4 ML SYRINGE SUB-Q (08:28)
[2023-07-25] MEDS: INSULIN ASPART (*BKC) 100 UNITS/ML SUB-Q ×4 (08:28→20:52)
[2023-07-25] MEDS: METOPROLOL SUCCINATE EXT REL 100 MG TABCR PO (08:28)
[2023-07-25] MEDS: INSULIN GLARGINE (*BKC) 100 UNITS/ML 60 UNITS SUB-Q ×2 (08:39→20:48)
[2023-07-25 12:19] LABS: Glucose Point of Care 370 mg/dl (65-105)
--- NOTE | 2023-07-25 12:43 | PM.PNGS ---
Progress Note: A&P Assessment and Plan (1) Subcutaneous mass of back: Code(s): R22.2 - Localized swelling, mass and lump, trunk Status: Chronic Assessment and Plan: CT scan describes this as more of an induration then a mass. It is not changed from yesterday by my examination. Agree with CT suggestion of posttraumatic hematoma with fibrosis or from previous infection. I explained to the patient that we could perform an ultrasound-guided needle biopsy to better ascertain the nature of the nodule. He does not want to do this. He replied that if it is not a boil, he would like to just leave it alone. I will go ahead and sign off. Thank you for asking me to see this patient in consultation. (2) Uncontrolled diabetes mellitus: Qualifiers: Diabetes mellitus type: type 2 Glycemic state: with hyperglycemia Qualified Code(s): E11.65 - Type 2 diabetes mellitus with hyperglycemia Status: Acute (3) Obesity: Code(s): E66.9 - Obesity, unspecified Status: Acute Subjective Subjective Date/Time Seen: 07/25/23 12:43 Patient reports: no new complaints, still having pain (Lump in left lower back is uncomfortable but not painful. No change from yesterday.) and afebrile Review of Systems Review of Systems: All systems reviewed & are unremarkable except as noted in HPI and below (HPI) Exam Const: General: comfortable, no acute distress, alert and awake Orientation/consciousness: No confusion Back/Spine/Pelvis: Back: mass (Subcutaneous mass left low/mid back unchanged. Slightly tender ), No erythema, No warmth, back tenderness (Mild tenderness over mass) and other (No erythema or fluctuance associated with left back mass) Objective Data Vital Signs Vital Signs: Vital Signs - 24 hr 07/24/23 13:42 07/24/23 14:06 07/24/23 14:00 Temperature Pulse Rate 85 81 90 Respiratory Rate 18 17 Blood Pressure Pulse Oximetry Oxygen Delivery Oxygen Flow Rate 07/24/23 14:00 07/24/23 16:00 07/24/23 16:00 Temperature 37.1 C Pulse Rate 90 84 84 Respiratory Rate 22 H 19 Blood Pressure 115/85 121/105 H Pulse Oximetry 98 96 Oxygen Delivery Oxygen Flow Rate 07/24/23 16:00 07/24/23 18:21 07/24/23 18:31 Temperature Pulse Rate 78 92 87 Respiratory Rate 16 17 14 Blood Pressure Pulse Oximetry 97 Oxygen Delivery Nasal Cannula Oxygen Flow Rate 2 07/24/23 18:00 07/24/23 18:00 07/24/23 20:00 Temperature 36.7 C Pulse Rate 84 88 95 Respiratory Rate 12 16 Blood Pressure 103/63 128/73 Pulse Oximetry 97 96 Oxygen Delivery Oxygen Flow Rate 07/24/23 20:00 07/25/23 00:00 07/24/23 22:00 Temperature Pulse Rate 100 Respiratory Rate 21 H Blood Pressure 131/81 Pulse Oximetry 95 97 97 Oxygen Delivery Nasal Cannula Nasal Cannula Oxygen Flow Rate 2 2 07/25/23 01:01 07/25/23 02:00 07/24/23 20:00 Temperature Pulse Rate 89 97 106 H Respiratory Rate 20 13 Blood Pressure 149/93 H 139/75 Pulse Oximetry 97 96 Oxygen Delivery Oxygen Flow Rate 07/25/23 00:00 07/24/23 22:00 07/25/23 02:00 Temperature Pulse Rate 84 94 78 Respiratory Rate Blood Pressure Pulse Oximetry Oxygen Delivery Oxygen Flow Rate 07/25/23 03:08 07/25/23 03:17 07/25/23 03:59 Temperature Pulse Rate 92 77 Respiratory Rate 16 14 Blood Pressure Pulse Oximetry 99 Oxygen Delivery Nasal Cannula Oxygen Flow Rate 2 07/25/23 04:00 07/25/23 06:00 07/25/23 04:00 Temperature 36.6 C Pulse Rate 93 107 H 88 Respiratory Rate 14 Blood Pressure 124/75 Pulse Oximetry 97 Oxygen Delivery Oxygen Flow Rate 07/25/23 06:00 07/25/23 08:28 07/25/23 08:00 Temperature Pulse Rate 107 H 119 H 102 H Respiratory Rate 17 13 Blood Pressure 122/70 Pulse Oximetry 88 L 96 Oxygen Delivery Nasal Cannula Oxygen Flow Rate 2 07/25/23 08:00 07/25/23 08:00 07/25/23 09:21 Temperature 37.0 C Pulse
[2023-07-25 16:34] LABS: Glucose Point of Care 316 mg/dl (65-105)
[2023-07-25 20:40] LABS: Glucose Point of Care 330 mg/dl (65-105)
[2023-07-25] MEDS: ATORVASTATIN 40 MG TABLET PO (20:52)
[2023-07-26] VITALS (24 sets, daily range): BP systolic 116–146; BP diastolic 49–100; PULSE 74–106; RESP 10–24; TEMP 36.3–37.1; O2SAT 88–99
[2023-07-26] MEDS: PIPERACILLIN/TAZ 4.5G/NS 100ML 4.5 GM/100 ML BAG IVPB ×4 (00:05→16:53)
[2023-07-26] MEDS: ALBUTEROL SULFATE NEB 2.5 MG/3 ML INH INHALATION ×4 (01:52→20:14)
[2023-07-26] MEDS: IPRATROPIUM BR 0.02% INH SOLN 0.5 MG/2.5 ML VIAL INHALATION ×4 (01:52→20:14)
[2023-07-26 05:10] LABS: Basophils Absolute Auto 0.1 K/mm3 (0.0-0.1); Basophils Percent Auto 0.8 % (0.2-1.2); Eosinophils Absolute Auto 0.4 K/mm3 (0-0.3); Eosinophils Percent Auto 4.2 % (0-4.4); Hematocrit 34.8 % (42.0-52.0); Hemoglobin 10.6 g/dL (14.0-18.0); Immature Granulocyte Absolute 0.02 K/mm3 (0.00-0.031); Immature Granulocyte Percent A 0.2 % (0-0.5); Lymphocytes Absolute Auto 2.14 K/mm3 (0.9-3.2); Lymphocytes Percent Auto 21.9 % (18.3-44.2); Mean Corpuscular HGB Conc 30.5 g/dl (32-36); Mean Corpuscular Hemoglobin 25.9 pg (26-34); Mean Corpuscular Volume 84.9 fl (80-100); Mean Platelet Volume 11.3 fl (7.4-10.4); Monocytes Absolute Auto 0.7 K/mm3 (0.1-0.6); Monocytes Percent Auto 7.5 % (2.6-8.5); Neutrophils Absolute Auto 6.4 K/mm3 (1.3-6.7); Neutrophils Percent Auto 65.4 % (45.5-73.1); Platelet Count Result 267 k/mm3 (150-375); Red Cell Distribution Width 14.3 % (11.5-14.5); White Blood Count 9.8 K/mm3 (4.5-10.0)
[2023-07-26 05:30] LABS: Alanine Aminotransferase 26 U/L (6-50); Albumin Level 3.9 g/dL (3.5-5.1); Alkaline Phosphatase 74 U/L (38-126); Anion Gap 8 mmol/L (8-16); Aspartate Amino Transferase 36 U/L (17-59); Bilirubin,Total 0.4 mg/dL (0.2-1.3); Blood Urea Nitrogen 16 mg/dL (9-20); Calcium 8.5 mg/dL (8.4-10.2); Carbon Dioxide 25 mmol/L (22-30); Chloride 101 mmol/L (98-107); Estimated CRCL calculation 113 ml/min; Estimated Glomerular Filt Rate > 60; Glucose 324 mg/dL (65-110); Magnesium 1.9 mg/dL (1.6-2.3); Phosphorus 3.3 mg/dL (2.5-4.5); Potassium 4.8 mmol/L (3.4-5.0); Sodium 134 mmol/L (137-145)
[2023-07-26 07:35] LABS: Glucose Point of Care 300 mg/dl (65-105)
--- NOTE | 2023-07-26 07:58 | WPDINTPN ---
Progress Note: A&P Assessment and Plan (1) Hyperosmolar hyperglycemic state (HHS): Code(s): E11.00 - Type 2 diabetes mellitus with hyperosmolarity without nonketotic hyperglycemic-hyperosmolar coma (NKHHC) Status: Acute Assessment and Plan: New onset diabetes with HHS 07/22: Patient presented the ED with altered mental status hyperglycemia with blood sugars of 739 in the ER. He also complained of polyuria and polydipsia -adequately fluid-resuscitated, started on insulin infusion and transferred to the ICU for further management -hemoglobin A1c is 13.5 this admission -appreciate agricultural extension educator and dietitian evaluation and recommendation -07/22: patient was transitioned to long-acting insulin and sliding scale insulin but had to be restarted on insulin infusion 07/23 as blood sugars remained in the 400s on multiple occasions. -07/24: OFF insulin infusion -07/25: Increased, patient on high-dose sliding scale insulin and additional insulin coverage with meals -07/26: Increase Lantus to 70 units q.12 hours -patient will require an special education educational assistant (2) Acute kidney injury: Code(s): N17.9 - Acute kidney failure, unspecified Status: Acute Assessment and Plan: Acute kidney injury likely related to HHS polyuria -adequately fluid-resuscitated -will monitor renal function, electrolytes and urine output -good urine output -creatinine at baseline (3) Hyperkalemia: Code(s): E87.5 - Hyperkalemia Status: Acute Assessment and Plan: could be be related to hyperglycemia, hemoconcentration, patient also takes spironolactone at home -patient has been treated in the ER and ICU with insulin, Lokelma, calcium and IV fluids -potassium level remains normal (4) Cardiomyopathy: Code(s): I42.9 - Cardiomyopathy, unspecified Status: Acute Assessment and Plan: Patient has a history of nonischemic cardiomyopathy likely related to longstanding hypertension mention in the cardiology progress notes from July 2022 -patient on aspirin, atorvastatin, Lasix, metoprolol, Entresto and spironolactone at the [facility], -continue Entresto, metoprolol hydralazine, amlodipine, -continue aspirin and atorvastatin -will hold Lasix and spironolactone since is likely hypovolemic secondary to polyuria, leading to HHS + hyperkalemia. Patient is auto diuresing and is in negative fluid balance -07/09/2022 Echocardiogram Summary ? 1. Left ventricular chamber dimension is severely enlarged. ? 2. Left ventricular systolic function is severely reduced, estimated at 20-25%. ? 3. There is severely increased left ventricular wall thickness. ? 4. The left ventricular diastolic function is grade I diastolic dysfunction. ? 5. Left atrial chamber dimension is mildly enlarged. ? 6. There is mild mitral valve regurgitation (5) HTN (hypertension), malignant: Code(s): I10 - Essential (primary) hypertension Status: Acute Assessment and Plan: On amlodipine, hydralazine and metoprolol (6) Subcutaneous mass of back: Code(s): R22.2 - Localized swelling, mass and lump, trunk Status: Chronic Assessment and Plan: Localized swelling on the back lower thoracic and upper lumbar region 6 x 4 cm non fluctuant, non mobile mass, no erythema, no warmth, nontender mass. -appreciate surgery evaluation and recommendations -continue Zosyn (07/24) will discontinue -07/25: CT scan of the thoracic and lumbar region 1. Soft tissue induration left lower back involving the fat at approximately the T11-L3 levels. Considerations include posttraumatic hematoma and infection. Correlate clinically. No discrete abscess identified. 2: Moderate lumbar spondylosis Plan DVT prophylaxis: Lovenox Stress ulcer prophylaxis: Not indicated Nutrition: Diabetic diet Code Status: Full code Critical Care Time Spent: 32 minutes Discussed with patient updated with his condition and plan of care. Due to a hi
[2023-07-26] MEDS: ASPIRIN 81 MG ENTERIC TABLET PO (08:50)
[2023-07-26] MEDS: amLODIPine BESYLATE 5 MG TABLET 10 MG PO (08:50)
[2023-07-26] MEDS: METOPROLOL SUCCINATE EXT REL 100 MG TABCR PO (08:50)
[2023-07-26] MEDS: ENOXAPARIN 40 MG/0.4 ML SYRINGE SUB-Q (08:51)
[2023-07-26] MEDS: SACUBITRIL/VALSARTAN 24-26 MG TABLET 1 TAB PO ×2 (08:51→21:53)
[2023-07-26] MEDS: INSULIN ASPART (*BKC) 100 UNITS/ML 8 UNITS SUB-Q (08:52)
[2023-07-26] MEDS: INSULIN GLARGINE (*BKC) 100 UNITS/ML 70 UNITS SUB-Q ×2 (08:52→21:52)
[2023-07-26] MEDS: INSULIN ASPART (*BKC) 100 UNITS/ML SUB-Q ×4 (08:53→21:53)
--- NOTE | 2023-07-26 10:05 | PCFNICU ---
ICU Rounding Note: Pt current nutrition is Diabetic consistent carbs. Nutrition recommendation: adaptive physical educator to discuss with hospitalist about diabetes medications to improve satiety, decrease insulin resistance, etc as adjunct treatment with insulin. Last recorded weight is 209.9 kg. Bowel Motility: BM not charted Labs Reviewed: Hgb 10.6, Hct 34.8, Na 134 Meds Noted: Lantus 70 units q 12 h. Novolog Skin: WNL Additional Notes: Pt continues to have issues with hunger and appetite, and asking for extra snacks. This has improved somewhat; only had 1-2 sandwiches last night. Arranged with kitchen for low-carb snacks to be kept on ICU floor and added low carb HS snack. Discussed with RN, Dr Ramirez and ZOHREH Baird Following daily in ICU rounds. .
[2023-07-26 11:34] LABS: Glucose Point of Care 386 mg/dl (65-105)
[2023-07-26] MEDS: INSULIN ASPART (*BKC) 100 UNITS/ML 13 UNITS SUB-Q ×2 (11:55→16:52)
[2023-07-26] MEDS: EMPAGLIFLOZIN 10 MG TABLET PO (15:15)
--- NOTE | 2023-07-26 15:15 | PCCDE ---
07/26/23 Pt continues with persistent hyperglycemia 07/25 BG range: 316-348. 07/26: BG range 300-386 - Lantus dose currently 70 u Q 12hr. Renal function improved. Spoke with Dr. Ramirez and Dr. Houston: Mealtime insulin increased to 13 U (wt based dosing per Wednesday weight) to start at lunch today, and Jardiance 10 mg daily added.
[2023-07-26 16:38] LABS: Glucose Point of Care 329 mg/dl (65-105)
[2023-07-26 19:46] LABS: Glucose Point of Care 238 mg/dl (65-105)
[2023-07-26] MEDS: ATORVASTATIN 40 MG TABLET PO (21:53)
[2023-07-27] VITALS (22 sets, daily range): BP systolic 109–168; BP diastolic 75–116; PULSE 79–105; RESP 14–22; TEMP 36.2–36.8; O2SAT 90–95
[2023-07-27] MEDS: ALBUTEROL SULFATE NEB 2.5 MG/3 ML INH INHALATION ×4 (02:02→19:36)
[2023-07-27] MEDS: IPRATROPIUM BR 0.02% INH SOLN 0.5 MG/2.5 ML VIAL INHALATION ×4 (02:02→19:36)
[2023-07-27 06:47] LABS: Hematocrit 34.7 % (42.0-52.0); Hemoglobin 10.6 g/dL (14.0-18.0); Mean Corpuscular HGB Conc 30.5 g/dl (32-36); Mean Platelet Volume 10.8 fl (7.4-10.4); Platelet Count Result 277 k/mm3 (150-375); Red Blood Count 4.08 M/mm3 (4.6-6.20); Red Cell Distribution Width 14.6 % (11.5-14.5); White Blood Count 9.2 K/mm3 (4.5-10.0)
[2023-07-27 07:00] LABS: Blood Urea Nitrogen 16 mg/dL (9-20); Chloride 104 mmol/L (98-107); Estimated CRCL calculation 124 ml/min; Estimated Glomerular Filt Rate > 60
[2023-07-27 07:31] LABS: Anion Gap 7 mmol/L (8-16); Calcium 8.5 mg/dL (8.4-10.2); Carbon Dioxide 26 mmol/L (22-30); Glucose 167 mg/dL (65-110); Potassium 4.5 mmol/L (3.4-5.0); Sodium 137 mmol/L (137-145)
[2023-07-27] MEDS: INSULIN ASPART (*BKC) 100 UNITS/ML 13 UNITS SUB-Q ×3 (08:04→16:53)
[2023-07-27] MEDS: INSULIN GLARGINE (*BKC) 100 UNITS/ML 70 UNITS SUB-Q ×2 (08:06→20:27)
[2023-07-27] MEDS: SACUBITRIL/VALSARTAN 24-26 MG TABLET 1 TAB PO ×2 (08:18→20:27)
[2023-07-27] MEDS: amLODIPine BESYLATE 5 MG TABLET 10 MG PO (08:18)
[2023-07-27] MEDS: METOPROLOL SUCCINATE EXT REL 100 MG TABCR PO (08:18)
[2023-07-27] MEDS: EMPAGLIFLOZIN 10 MG TABLET PO (08:18)
[2023-07-27] MEDS: ASPIRIN 81 MG ENTERIC TABLET PO (08:18)
[2023-07-27 08:24] LABS: Glucose Point of Care 166 mg/dl (65-105)
[2023-07-27] MEDS: metFORMIN HCL 500 MG TABLET PO (08:25)
--- NOTE | 2023-07-27 08:41 | WPDINTPN ---
Progress Note: A&P Assessment and Plan (1) Hyperosmolar hyperglycemic state (HHS): Code(s): E11.00 - Type 2 diabetes mellitus with hyperosmolarity without nonketotic hyperglycemic-hyperosmolar coma (NKHHC) Status: Acute Assessment and Plan: New onset diabetes with HHS 07/22: Patient presented the ED with altered mental status hyperglycemia with blood sugars of 739 in the ER. He also complained of polyuria and polydipsia -adequately fluid-resuscitated, started on insulin infusion and transferred to the ICU for further management -hemoglobin A1c is 13.5 this admission -appreciate certified adaptive physical educator and dietitian evaluation and recommendation -07/22: patient was transitioned to long-acting insulin and sliding scale insulin but had to be restarted on insulin infusion 07/23 as blood sugars remained in the 400s on multiple occasions. -07/24: OFF insulin infusion -07/25: Increased, patient on high-dose sliding scale insulin and additional insulin coverage with meals -07/26: Increase Lantus to 70 units q.12 hours Continue current dose of Lantus, with meal insulin and sliding scale. Add metformin (2) Acute kidney injury: Code(s): N17.9 - Acute kidney failure, unspecified Status: Acute Assessment and Plan: Acute kidney injury likely related to HHS polyuria -adequately fluid-resuscitated -will monitor renal function, electrolytes and urine output -good urine output -creatinine at baseline (3) Hyperkalemia: Code(s): E87.5 - Hyperkalemia Status: Acute Assessment and Plan: could be be related to hyperglycemia, hemoconcentration, patient also takes spironolactone at home -patient has been treated in the ER and ICU with insulin, Lokelma, calcium and IV fluids -potassium level remains normal (4) Cardiomyopathy: Code(s): I42.9 - Cardiomyopathy, unspecified Status: Acute Assessment and Plan: Patient has a history of nonischemic cardiomyopathy likely related to longstanding hypertension mention in the cardiology progress notes from July 2022 -patient on aspirin, atorvastatin, Lasix, metoprolol, Entresto and sp[facility]olactone at the [facility], -continue Entresto, metoprolol hydralazine, amlodipine, -continue aspirin and atorvastatin -will hold Lasix and spironolactone since is likely hypovolemic secondary to polyuria, leading to HHS + hyperkalemia. Patient is auto diuresing and is in negative fluid balance -07/09/2022 Echocardiogram Summary ? 1. Left ventricular chamber dimension is severely enlarged. ? 2. Left ventricular systolic function is severely reduced, estimated at 20-25%. ? 3. There is severely increased left ventricular wall thickness. ? 4. The left ventricular diastolic function is grade I diastolic dysfunction. ? 5. Left atrial chamber dimension is mildly enlarged. ? 6. There is mild mitral valve regurgitation (5) HTN (hypertension), malignant: Code(s): I10 - Essential (primary) hypertension Status: Acute Assessment and Plan: On amlodipine, Entresto and metoprolol Resume hydralazine if blood pressure not adequately control (6) Subcutaneous mass of back: Code(s): R22.2 - Localized swelling, mass and lump, trunk Status: Chronic Assessment and Plan: Localized swelling on the back lower thoracic and upper lumbar region 6 x 4 cm non fluctuant, non mobile mass, no erythema, no warmth, nontender mass. -appreciate surgery evaluation and recommendations -patient was on Zosyn (07/24) which has been discontinued -07/25: CT scan of the thoracic and lumbar region 1. Soft tissue induration left lower back involving the fat at approximately the T11-L3 levels. Considerations include posttraumatic hematoma and infection. Correlate clinically. No discrete abscess identified. 2: Moderate lumbar spondylosis Plan DVT prophylaxis: Lovenox Stress ulcer prophylaxis: Not indicated Nutrition: Diabetic diet Code Status: Full code Consult PT
[2023-07-27] MEDS: ENOXAPARIN 40 MG/0.4 ML SYRINGE SUB-Q (09:24)
--- NOTE | 2023-07-27 10:31 | PCFNICU ---
ICU Rounding Note: Pt current nutrition is Diabetic consistent carb. Nutrition recommendation: continue with plan of care Last recorded weight is 215 kg. Bowel Motility: No BM recorded at this time Labs Reviewed: Hgb:10.6, HCT:34.7, Glu:166 -fasting Meds Noted: lantus, novolog, metformin added Skin: WNL Additional Notes: Pt insulin adjusted yesterday, metformin added, fasting blood sugar better controlled. Intake remains 100% all meals plus snacks. Following daily in ICU rounds.
[2023-07-27] MEDS: INSULIN ASPART (*BKC) 100 UNITS/ML SUB-Q (11:52)
[2023-07-27 11:53] LABS: Glucose Point of Care 215 mg/dl (65-105)
[2023-07-27 16:50] LABS: Glucose Point of Care 115 mg/dl (65-105)
[2023-07-27 20:26] LABS: Glucose Point of Care 151 mg/dl (65-105)
[2023-07-27] MEDS: ATORVASTATIN 40 MG TABLET PO (20:27)
[2023-07-28] VITALS (17 sets, daily range): BP systolic 129–157; BP diastolic 84–96; PULSE 77–105; RESP 14–20; TEMP 36.7–37; O2SAT 95–98
[2023-07-28] MEDS: ALBUTEROL SULFATE NEB 2.5 MG/3 ML INH INHALATION ×4 (01:34→20:59)
[2023-07-28] MEDS: IPRATROPIUM BR 0.02% INH SOLN 0.5 MG/2.5 ML VIAL INHALATION ×4 (01:34→20:59)
[2023-07-28 05:34] LABS: Hematocrit 34.1 % (42.0-52.0); Hemoglobin 10.5 g/dL (14.0-18.0); Mean Corpuscular HGB Conc 30.8 g/dl (32-36); Mean Corpuscular Volume 84.4 fl (80-100); Mean Platelet Volume 11.2 fl (7.4-10.4); Platelet Count Result 310 k/mm3 (150-375); Red Blood Count 4.04 M/mm3 (4.6-6.20); Red Cell Distribution Width 14.6 % (11.5-14.5); White Blood Count 10.7 K/mm3 (4.5-10.0)
[2023-07-28 05:45] LABS: Anion Gap 9 mmol/L (8-16); Blood Urea Nitrogen 19 mg/dL (9-20); Carbon Dioxide 27 mmol/L (22-30); Chloride 102 mmol/L (98-107); Estimated CRCL calculation 107 ml/min; Estimated Glomerular Filt Rate > 60; Glucose 200 mg/dL (65-110); Potassium 4.2 mmol/L (3.4-5.0); Sodium 138 mmol/L (137-145)
[2023-07-28 07:46] LABS: Glucose Point of Care 157 mg/dl (65-105)
[2023-07-28] MEDS: INSULIN GLARGINE (*BKC) 100 UNITS/ML 70 UNITS SUB-Q ×2 (09:09→20:43)
[2023-07-28] MEDS: INSULIN ASPART (*BKC) 100 UNITS/ML 13 UNITS SUB-Q ×3 (09:11→17:06)
[2023-07-28] MEDS: EMPAGLIFLOZIN 10 MG TABLET PO (09:13)
[2023-07-28] MEDS: METOPROLOL SUCCINATE EXT REL 100 MG TABCR PO (09:13)
[2023-07-28] MEDS: ASPIRIN 81 MG ENTERIC TABLET PO (09:13)
[2023-07-28] MEDS: amLODIPine BESYLATE 5 MG TABLET 10 MG PO (09:13)
[2023-07-28] MEDS: SACUBITRIL/VALSARTAN 24-26 MG TABLET 1 TAB PO ×2 (09:15→21:16)
[2023-07-28] MEDS: ENOXAPARIN 40 MG/0.4 ML SYRINGE SUB-Q (09:16)
[2023-07-28] MEDS: metFORMIN HCL 500 MG TABLET PO ×2 (09:16→17:07)
[2023-07-28] MEDS: INSULIN ASPART (*BKC) 100 UNITS/ML SUB-Q (12:03)
[2023-07-28 12:10] LABS: Glucose Point of Care 214 mg/dl (65-105)
--- NOTE | 2023-07-28 14:03 | PM.IMPN ---
Progress Note: A&P Assessment and Plan (1) Hyperosmolar hyperglycemic state (HHS): Code(s): E11.00 - Type 2 diabetes mellitus with hyperosmolarity without nonketotic hyperglycemic-hyperosmolar coma (NKHHC) Status: Acute (2) Acute kidney injury: Code(s): N17.9 - Acute kidney failure, unspecified Status: Acute (3) Hyperkalemia: Code(s): E87.5 - Hyperkalemia Status: Acute (4) Cardiomyopathy: Code(s): I42.9 - Cardiomyopathy, unspecified Status: Acute (5) HTN (hypertension), malignant: Code(s): I10 - Essential (primary) hypertension Status: Acute (6) Subcutaneous mass of back: Code(s): R22.2 - Localized swelling, mass and lump, trunk Status: Chronic Plan 53 y/o M presented here with AMS and hyperglycemia this morning with PMH of cardiomyopathy, HTN, MO, TIA, and obesity w/related mobility reduction. Upon arrival the blood glucose was 739. Was found to have hyperosmolar hyperglycemic state. Admitted to ICU. Was treated with insulin drip. Has been transition to subcutaneous insulin. 1. New onset of diabetes mellitus: Currently on subcutaneous insulin Blood glucose checked t.i.d. a.c. and HS Hemoglobin A1c 13.5 Appreciate informatics educator help Continue with Lantus 70 units b.i.d. Continue with mealtime insulin plus sliding scale Was started on metformin yesterday 2. DICKSON: Creatinine had normalized but another bump this morning Will recheck BMP in a.m. Avoid nephrotoxins Hyperkalemia has resolved 3. History of cardiomyopathy: patient on aspirin, atorvastatin, Lasix, metoprolol, [facility] -continue Entresto, metoprolol hydralazine, amlodipine, -continue aspirin and atorvastatin Lasix and Aldactone are on hold 4. Chronic swelling on the back: Appreciate surgery help w No intervention 5. DVT prophylaxis: Lovenox 6. Code status: Full 7. Disposition: Anticipate discharge tomorrow morning if kidney function is stable Time Spent With Patient Time with patient: 15 - 25 minutes Subjective Date/time seen: 07/28/23 14:03 Interval history: No acute events overnight Review of Systems Review of Systems: All systems reviewed & are unremarkable except as noted in HPI and below Exam Narrative: General: Pleasant gentleman in no acute distress HEENT:? Pupils equal and reactive, sclera is clear, dry oral mucosa Neck:? Supple, skin tags noted Respiratory:? Clear to auscultation bilaterally, no wheezing, adequate air entry Cardiac:? S1-S2 is normal, regular rate and rhythm Abdomen:? Soft, nontender, nondistended, normoactive bowel sounds, morbidly obese Extremities:? , no edema palpable pedal pulses Neuro:? Patient is awake, alert, oriented, able to answer questions appropriately and follows simple commands in all extremities Skin:? 6 cm x 4 cm subcutaneous mass noted in the lower thoracic and upper lumbar region, nonfluctuant, not mobile and nontender, not warm, no erythema Psych:? Normal mentation, flat affect Objective Data Vital Signs Vital Signs: Vital Signs - 24 hr 07/27/23 16:00 07/27/23 16:00 07/27/23 19:36 Temperature Pulse Rate 86 86 91 Respiratory Rate 19 16 Blood Pressure 131/94 H Pulse Oximetry 91 Oxygen Delivery Oxygen Flow Rate 07/27/23 19:58 07/27/23 19:59 07/27/23 20:30 Temperature 98.3 F Pulse Rate 88 90 Respiratory Rate 18 14 Blood Pressure 151/76 H Pulse Oximetry 91 94 Oxygen Delivery Nasal Cannula Oxygen Flow Rate 2 07/27/23 20:00 07/27/23 20:00 07/28/23 00:00 Temperature Pulse Rate 96 77 Respiratory Rate 16 Blood Pressure 129/94 H Pulse Oximetry 94 96 Oxygen Delivery Nasal Cannula Oxygen Flow Rate 2 07/28/23 00:00 07/28/23 01:36 07/28/23 01:45 Temperature Pulse Rate 85 94 89 Respiratory Rate 20 18 Blood Pressure Pulse Oximetry Oxygen Delivery Oxygen Flow Rate 07/28/23 04:00 07/28/23
[2023-07-28 16:07] LABS: Glucose Point of Care 111 mg/dl (65-105)
--- NOTE | 2023-07-28 17:19 | PC.NURSE ---
This patient, Fernando Lambert, was transferred to [facility] on 07/28/23 at 1719. Personal belongings sent with patient. Report given to BELLE Smith. Appropriate documentation sent with patient.
--- NOTE | 2023-07-28 17:22 | PC.NURSE ---
Patient received from ICU room 3 to room 348. Call light in reach.
[2023-07-28] MEDS: ATORVASTATIN 40 MG TABLET PO (20:42)
[2023-07-28 20:58] LABS: Glucose Point of Care 151 mg/dl (65-105)
[2023-07-29] VITALS (9 sets, daily range): BP systolic 139–140; BP diastolic 72–79; PULSE 73–94; RESP 18–24; TEMP 36.6–36.8; O2SAT 94–100
[2023-07-29] MEDS: ALBUTEROL SULFATE NEB 2.5 MG/3 ML INH INHALATION ×3 (03:11→13:06)
[2023-07-29] MEDS: IPRATROPIUM BR 0.02% INH SOLN 0.5 MG/2.5 ML VIAL INHALATION ×3 (03:13→13:06)
[2023-07-29 07:49] LABS: Hematocrit 35.2 % (42.0-52.0); Hemoglobin 10.7 g/dL (14.0-18.0); Mean Corpuscular HGB Conc 30.4 g/dl (32-36); Mean Corpuscular Volume 85.6 fl (80-100); Mean Platelet Volume 10.4 fl (7.4-10.4); Platelet Count Result 301 k/mm3 (150-375); Red Blood Count 4.11 M/mm3 (4.6-6.20); Red Cell Distribution Width 14.7 % (11.5-14.5); White Blood Count 8.4 K/mm3 (4.5-10.0)
[2023-07-29 08:00] LABS: Anion Gap 9 mmol/L (8-16); Blood Urea Nitrogen 17 mg/dL (9-20); Calcium 8.7 mg/dL (8.4-10.2); Carbon Dioxide 25 mmol/L (22-30); Chloride 106 mmol/L (98-107); Estimated CRCL calculation 123 ml/min; Estimated Glomerular Filt Rate > 60; Glucose 132 mg/dL (65-110); Potassium 4.2 mmol/L (3.4-5.0); Sodium 140 mmol/L (137-145)
[2023-07-29 08:13] LABS: Glucose Point of Care 133 mg/dl (65-105)
[2023-07-29] MEDS: SACUBITRIL/VALSARTAN 24-26 MG TABLET 1 TAB PO (09:06)
[2023-07-29] MEDS: ASPIRIN 81 MG ENTERIC TABLET PO (09:06)
[2023-07-29] MEDS: ENOXAPARIN 40 MG/0.4 ML SYRINGE SUB-Q (09:06)
[2023-07-29] MEDS: EMPAGLIFLOZIN 10 MG TABLET PO (09:07)
[2023-07-29] MEDS: metFORMIN HCL 500 MG TABLET PO ×2 (09:07→17:24)
[2023-07-29] MEDS: METOPROLOL SUCCINATE EXT REL 100 MG TABCR PO (09:07)
[2023-07-29] MEDS: amLODIPine BESYLATE 5 MG TABLET 10 MG PO (09:07)
[2023-07-29] MEDS: INSULIN GLARGINE (*BKC) 100 UNITS/ML 70 UNITS SUB-Q (09:08)
[2023-07-29] MEDS: INSULIN ASPART (*BKC) 100 UNITS/ML 13 UNITS SUB-Q ×3 (09:10→17:25)
--- NOTE | 2023-07-29 11:42 | PM.DS ---
DS: Admitting Diagnosis Discharge Date 07/29/23 Admitting Diagnosis Hyper osmolar hyperglycemic state DICKSON History of cardiomyopathy DS: Discharge Diagnosis Discharge Diagnosis (1) Subcutaneous mass of back: Code(s): R22.2 - Localized swelling, mass and lump, trunk Status: Chronic (2) Cardiomyopathy: Code(s): I42.9 - Cardiomyopathy, unspecified Status: Acute (3) Hyperosmolar hyperglycemic state (HHS): Code(s): E11.00 - Type 2 diabetes mellitus with hyperosmolarity without nonketotic hyperglycemic-hyperosmolar coma (NKHHC) Status: Acute (4) Uncontrolled diabetes mellitus: Qualifiers: Diabetes mellitus type: type 2 Glycemic state: with hyperglycemia Qualified Code(s): E11.65 - Type 2 diabetes mellitus with hyperglycemia Status: Acute (5) Acute kidney injury: Code(s): N17.9 - Acute kidney failure, unspecified Status: Acute DS: Summary Hospital Course Reason for hospitalization: Hyperosmolar hyperglycemic state DICKSON Hospital Course: 53 y/o M with past medical history of cardiomyopathy, hypertension, mi, TIA, obesity presented with altered mental status and hyperglycemia.? Upon arrival the blood glucose was 739.? Was found to? have hyperosmolar hyperglycemic state.? Was admitted to ICU.? Was treated with insulin drip.? Hemoglobin A1c was 13.5. Once the anion gap closed he was transitioned to subcutaneous insulin, he was discharged on b.i.d. Lantus along with mealtime insulin and metformin, had DICKSON upon admission which had normalized with supportive treatment. He was continued on his medications for his cardiomyopathy. Had a chronic swelling on the back, surgery was consulted, no intervention needed. Discharge back to the [facility] in stable condition Status at Discharge Functional status at discharge: uses cane/walker Overall status at discharge: patient is back to baseline Time Spent with Patient Time attestation: Total time spent providing and/or coordinating discharge services: Time spent: Greater than 30 minutes Exam Narrative: General: Pleasant gentleman in no acute distress HEENT:? Pupils equal and reactive, sclera is clear, dry oral mucosa Neck:? Supple, skin tags noted Respiratory:? Clear to auscultation bilaterally, no wheezing, adequate air entry Cardiac:? S1-S2 is normal, regular rate and rhythm Abdomen:? Soft, nontender, nondistended, normoactive bowel sounds, morbidly obese Extremities:? , no edema palpable pedal pulses Neuro:? Patient is awake, alert, oriented, able to answer questions appropriately and follows simple commands in all extremities Skin:? 6 cm x 4 cm subcutaneous mass noted in the lower thoracic and upper lumbar region, nonfluctuant, not mobile and nontender, not warm, no erythema Psych:? Normal mentation, flat affect DS: Data Data Completed and Pending Labs on day of discharge: Labs from last 24 hours 07/29/23 07/29/23 07/28/23 08:08 07:38 20:32 WBC 8.4 RBC 4.11 L Hgb 10.7 L Hct 35.2 L MCV 85.6 MCH 26.0 MCHC 30.4 L RDW 14.7 H Plt Count 301 MPV 10.4 Sodium 140 Potassium 4.2 Chloride 106 Carbon Dioxide 25 Anion Gap 9 BUN 17 Creatinine 1.20 Estim Creat Clear Calc 123 Estimated GFR > 60 Glucose 132 H POC Capillary Glucose 133 H 151 H Calcium 8.7 07/28/23 07/28/23 16:03 11:52 WBC RBC Hgb Hct MCV MCH MCHC RDW Plt Count MPV Sodium Potassium Chloride Carbon Dioxide Anion Gap BUN Creatinine Estim Creat Clear Calc Estimated GFR Glucose POC Capillary Glucose 111 H 214 H Calcium Discharge Plan Discharge Attending physician on discharge: Luma Connell Consulting providers: Constance Nesbitt; Ld Ramirez Discharging Clinician: Luma Connell Anticipated Discharge Date/Time: 07/29/23 11:25 Patient Disposition: NH Alf/Asst Living Activity: as
[2023-07-29 12:31] LABS: Glucose Point of Care 141 mg/dl (65-105)
--- NOTE | 2023-07-29 15:09 | PCPTNOTE ---
Attempted PT evaluation, pt refused stating he was discharging today.
[2023-07-29 15:36] LABS: Influenza A QL RT-PCR Negative (Negative); Influenza B QL RT-PCR Negative (Negative); SARS-CoV-2 RNA PCR Negative (Negative)
[2023-07-29 17:30] LABS: Glucose Point of Care 111 mg/dl (65-105)
== END 2023-07-29 18:30 | DRG 420 ==
LOC: ANHED 09:20 → ANHICU 13:10 → ANH3MED 07-28 17:44
PROVIDERS: Internal Medicine; Admitting Provider Student in an Organized Health Care Education/Training Program; Emergency Provider Physician Assistant; PCP Hospitalist; Visit Provider Internal Medicine
DX: E11.00 Type 2 diabetes mellitus with hyperosmolarity without nonketotic hyperglycemic-hyperosmolar coma (NKHHC) (principal); I42.9 Cardiomyopathy, unspecified; N17.9 Acute kidney failure, unspecified; I50.9 Heart failure, unspecified; I11.0 Hypertensive heart disease with heart failure; E87.5 Hyperkalemia; Z68.43 Body mass index [BMI] 50.0-59.9, adult; E11.65 Type 2 diabetes mellitus with hyperglycemia; E66.01 Morbid (severe) obesity due to excess calories; R22.2 Localized swelling, mass and lump, trunk; Z20.822 Contact with and (suspected) exposure to COVID-19; Z86.73 Personal history of transient ischemic attack (TIA), and cerebral infarction without residual deficits; Z79.82 Long term (current) use of aspirin; I25.2 Old myocardial infarction
CPT/HCPCS: 36415; 36600; 70450; 71046; 72128; 72131; 80048; 80053; 81003; 82010; 82375; 82805; 82948; 83036; 83050; 83605; 83735; 83880; 84100; 84145; 85025; 85027; 87636; 93005; 94640; 96361; 96365; 96366; 96374; 96375; 99285; A9270; G0378; G0379; J0612; J1650; J1815; J2543; J7030